=== PATIENT | male | born 1945 | race Caucasian/White ===

== ENCOUNTER → 2018-05-28 11:18 | Outpatient (CLI) | payer MEDICARE, SELFPAY ==
[2018-06-03 16:08] LABS: HSV 1 By PCR Negative (Negative)
[2018-06-04 11:53] LABS: HSV 2 By PCR Positive (Negative)
== END ==
PROVIDERS: Referring Provider Dermatology; Visit Provider Dermatology
DX: B00.1 Herpesviral vesicular dermatitis (principal)
CPT/HCPCS: 87529; 87798

== ENCOUNTER 2020-11-13 21:52 | Emergency (ER) | payer MEDICARE, SELFPAY ==
[2020-11-13] VITALS (7 sets, daily range): BP systolic 140–161; BP diastolic 97–104; PULSE 85–90; RESP 19–25; TEMP 35.8; O2SAT 94–96; BMI 27.9
--- NOTE | 2020-11-13 21:59 | EKG12_ITS ---
Test Reason : DYSRYTHMIA Blood Pressure : / mmHG Vent. Rate : 083 BPM Atrial Rate : 083 BPM P-R Int : 202 ms QRS Dur : 082 ms QT Int : 378 ms P-R-T Axes : 035 031 004 degrees QTc Int : 444 ms Normal sinus rhythm Normal ECG Confirmed by RICARDO CASAS, RAJESH ([id number]), editorial cartoonist SHIMA ALVARES ([id number]) on 11/16/2020 10:03:03 AM Referred By: ALEN Confirmed By:RAJESH SILVA MD
--- NOTE | 2020-11-13 21:59 | CT_ITS ---
We are attempting to reach an attending provider to discuss findings. An addendum with communication details will be sent when the communication is complete. EXAMINATION : Head CT w/out contrast HISTORY : Transient amnesia COMPARISON : None. TECHNIQUE : Multiple contiguous axial images were obtained from the skull base to the vertex without intravenous contrast. A radiation dose optimization technique was used for this scan. FINDINGS : There is no evidence for acute intracranial hemorrhage, mass effect, or midline shift. There is no extra-axial fluid collection. There are periventricular white matter changes consistent with chronic microvascular ischemic disease. There is normal fox-white differentiation, without CT evidence of acute ischemia or infarct. The skull base and calvarium are unremarkable. The orbits are unremarkable. The paranasal sinuses are clear. The mastoid air cells are well-aerated. The soft tissues are unremarkable. CT/STROKE Brain/Head without Cont IMPRESSION: No acute intracranial abnormality. Chronic ischemic changes of the brain. Electronically Signed: Konrad Ashraf MD at 22:22 EDT Tel , Service support ,
[2020-11-13 22:00] LABS: Bedside Glucose 125 mg/dL (70-110)
[2020-11-13 22:08] LABS: Absolute Lymphocyte Count 1.39 X10^3/uL (0.83-4.51); Absolute Neutrophil Count 3.1 X10^3/uL (2.0-7.7); Basophil# 0.03 X10^3/uL; Basophil% 0.6 % (0-1); Hemoglobin 15.7 g/dL (13.0-16.5); Lymphocyte # 1.39 X10^3/ul (4.0); Lymphocyte % 28.3 % (19-41); Mean Corp Hgb Conc 34.1 g/dL (32-36); Mean Corpuscular Hgb 32.4 pg (27.0-32.0); Mean Platelet Vol. 11.7 fl (6.2-12.0); Monocyte# 0.38 X10^3/uL; Monocyte% 7.7 % (0-10); NRBC Flagged by Analyzer 0 % (0-5); Neutrophil # 3.11 X10^3/uL (2.7-7.7); Neutrophil % 63.2 % (47-70); Platelet Count 171 K/mm3 (150-450); RBC Distribution Width CV 12.8 % (11.6-14.6); RBC Distribution Width SD 44.8 fl (35.1-43.9); Red Blood Count 4.84 M/mm3 (4.6-6.2); White Blood Count 4.9 K/mm3 (4.4-11.0)
--- NOTE | 2020-11-13 22:08 | RAD_ITS ---
STUDY: X-RAY CHEST REASON FOR EXAM: Male, 74 years old. Stroke symptoms. TECHNIQUE: AP portable upright COMPARISON: None. FINDINGS: No evidence of pneumonia, pulmonary edema, pneumothorax or pleural effusion. Cardiac silhouette, hilar and mediastinal contours with no acute findings. Heart size normal. Atherosclerosis of the thoracic aorta. Degenerative osseous changes with no acute osseous abnormality. Right shoulder arthroplasty partially visible. RAD/Chest 1 View IMPRESSION: No acute findings. Electronically Signed: Renato Jaramillo MD at 22:50 EDT Tel , Service support ,
--- NOTE | 2020-11-13 22:17 | ED.VIS.GEN ---
History of Present Illness Chief Complaint: Neuro S/Sx Narrative: Patient presenting for evaluation due to an episode of amnesia. Patient has an underlying history of hypertension and hyperlipidemia. Per the patient's he has been going to a memory specialist recently secondary to some cognitive issues. Patient reports that today he had an episode where he basically forgot an entire 2-hour period of time where a friend had come over to his house and helped him on a project. He reports that afterwards he completely forgot about this, and actually argued with his whether or not the friend was there, he called the friend and the friend corroborated that he was there for about 2-1/2 hours. The patient tells me that after he was reminded about this he remembered the entirety of the event. He denies that he had any sort of other neurologic signs or symptoms such as visual changes numbness weakness. No speech difficulty. He denies any other somatic complaints such as chest pain or shortness of breath or infectious signs or symptoms such as fever cough nausea vomiting or diarrhea. Review of systems otherwise negative. Past Medical History - Allergies and Home Meds Allergies/Adverse Reactions: Allergies carbamazepine Allergy (Verified 11/13/20 22:02) Anaphylaxis atorvastatin Adverse Reaction (Verified 11/13/20 22:02) Pain in joints lovastatin Adverse Reaction (Verified 11/13/20 22:02) Pain in joints Vrqavqs-Ato-Zbq Reductase Inhibitor Adverse Reaction (Verified 11/13/20 22:02) Pain in joints Primary Care Physician: Morena Davis MD [Primary Care Provider] - Prior records reviewed: Yes Past Medical History: - - Hypertension, hyperlipidemia Lives: Spouse/ Significant Other Smoking Status: Never smoker Alcohol: None Drugs: None Review of Systems All systems negative except as indicated General: Denies: Chills, Fever, Sweats Eyes: Denies: Visual changes - bilaterally, Diplopia ENT: Denies: Rhinorrhea, Sore throat Cardiovascular: Denies: Chest pain, Palpitations Respiratory: Denies: Dyspnea, Cough, Dyspnea on exertion Gastrointestinal: Denies: Abdominal pain, Nausea, Vomiting, Diarrhea, Melena, Hematochezia Genitourinary: Denies: Dysuria, Hematuria, Frequency Musculoskeletal: Denies: Back pain, Extremity Pain Skin: Denies: Rash, Wounds Neurological: Reports: - - Episode of amnesia Physical Exam Vital Signs/Narrative: Vital Signs Temp Pulse Resp BP Pulse Ox 11/13/20 22:08 96 11/13/20 21:59 90 21 H 160/102 H 95 11/13/20 21:52 96.4 F L 89 25 H 161/104 H 96 Inital Vital Signs reviewed: Yes General: Well nourished, Well developed, No Acute Distress Head: Normocephalic, Atraumatic Eyes: Perrl, EOMI ENT: Moist mucous membranes, No rhinorrhea Neck: Supple, Nontender Cardiovascular: Regular rate, Regular rhythm, No murmurs Respiratory: No distress, CTA bilaterally, Chest nontender Abdomen: Soft, Nontender, Nondistended, Normal bowel sounds Back: Nontender, Normal Inspection Extremities: Nontender, No edema Skin: Normal color, No rash Neurological: Alert, Oriented x3, Cranial nerves II-XII grossly intact, Normal Strength, Normal Sensation, - - Night stroke scale is 0 Psychological: Normal affect, Normal Mood Diagnostic/Tx/Re-eval Chest X-Ray - ED: 1 View, Read by ED Physician, Normal Clinical Impression(s) from Imaging Studies Chest X-Ray 11/13/20 22:08 IMPRESSION: No acute findings. Electronically Signed: Renato Jaramillo MD at 22:50 EDT Tel , Service support , Laboratory Data 11/13/20 11/13/20 11/13/20 21:55 22:00 22:00 WBC 4.9 RBC 4.84 Hgb 15.7 Hct 46.0 MCV 95.0 H MCH 32.4 H MCHC 34.1 RDW Std Deviation 44.8 H RDW Coeff of Jaelyn 12.8 Plt Count 171 MPV 11.7 Immature Gran % (Auto) 0.200 Neut % (Auto) 63.2 Lymph % (Auto) 28.3 Finney % (Auto) 7.7 Eos % (Auto) 0.0 Baso % (Auto) 0.6 Absolute Neuts (auto) 3.1 Absolute Lymphs (auto) 1.39 Nucleated RBC % 0 PT 12.0 INR 0.9 APTT 26.6 Sodium Potassium Chloride Carbon Dioxide Anion Gap BUN Creatinine Estim Creat Clear Calc Est GFR (MDRD) Af Amer Est GFR (MDRD) Non-Af BUN/Creatinine Ratio Glucose Calcium Troponin I POC Glucose 125 H 11/13/20 22:00 WBC RBC Hgb Hct MCV MCH MCHC RDW Std Deviation RDW Coeff of Jaelyn Plt Count MPV Immature Gran % (Auto) Neut % (Auto) Lymph % (Auto) Finney % (Auto) Eos % (Auto) Baso % (Auto) Absolute Neuts (auto) Absolute Lymphs (auto) Nucleated RBC % PT INR APTT Sodium 137 Potassium 5.2 H Chloride 103 Carbon Dioxide 27.0 Anion Gap 7 BUN 28 H Creatinine 0.96 Estim Creat Clear Calc 70.76 Est GFR (MDRD) Af Amer 99 Est GFR (MDRD) Non-Af 82 BUN/Creatinine Ratio 29.2 H Glucose 115 H Calcium 9.7 Troponin I < 0.015 POC Glucose - EKG Initial EKG Interpretation: - - Sinus rhythm of [address] segments normal T waves, mild OH prolongation at 202 normal QTC. No evidence of acute ischemia or arrhythmia. - Medical Decision Making Patient presented secondary to an episode of forgetfulness. CT imaging of the brain was negative. Chest x-ray by my personal review shows no acute pathology, radiology concurs. Laboratory work-up including CBC chemistry and troponin were found to be unremarkable. Not clinically significant elevation of potassium was noted. Patient remained stable in the emergency department. Patient does have an underlying history of some cognitive issues, and this seems more of a likely presentation of a cognitive impairment rather than a TIA or a stroke. Even if it was a TIA, the patient's ABCD 2 score is only a 2 making him low risk for conversion to a stroke. Patient will continue to follow-up with his cognition specialist at the [facility]. Patient was discharged in stable condition. ED Disposition - Plan for ED Patient: Disposition: Home or Assisted Living Diagnosis: Transient amnesia Instructions: ED Confusion Referrals: Morena Davis MD [Primary Care Provider] - As Needed
[2020-11-13 22:18] LABS: International Normalized Ratio 0.9; Partial Thromboplast Time 26.6 Seconds (24.1-36.2)
[2020-11-13 22:31] LABS: Anion Gap 7 (5-15); BUN 28 mg/dL (7-18); BUN/Creat Ratio 29.2 RATIO (10-20); Calcium,Total 9.7 mg/dL (8.5-10.1); Chloride 103 mmol/L (98-107); Creatinine, Serum 0.96 mg/dL (0.70-1.30); EST Glomerular Filtration Rate 82 mL/min (>60); Est Glom Filt Rate - Afr Amer 99 mL/min (>60); Estimated Creatinine Clearance 70.76 ml/min; Glucose 115 mg/dL (74-106); Potassium 5.2 mmol/L (3.5-5.1); Sodium Level 137 mmol/L (136-145)
== END 2020-11-13 23:47 | disposition home or self-care (01) ==
PROVIDERS: Emergency Provider Emergency Medicine; PCP Internal Medicine
DX: R41.3 Other amnesia (principal); I10 Essential (primary) hypertension; E78.5 Hyperlipidemia, unspecified; Z79.899 Other long term (current) drug therapy
CPT/HCPCS: 70450; 71045; 80048; 82962; 84484; 85025; 85610; 85730; 93005; 99284; A4216

== ENCOUNTER 2021-07-03 11:00 | Outpatient (RCR) | payer MEDICARE, SELFPAY ==
--- NOTE | 2021-05-15 14:08 | HP.PTEVAL_ITS ---
Patient's Visit Information JAI BABB is a 75 year old M referred to Physical Therapy by JUSTIN FLOYD with a diagnosis of LUMBAR FACET ARTHROPATHYT, SPONDYLOSIS AND S/P LUMBAR LAMINECTOMY. Date of Evaluation: 05/15/21 Physical Therapist: Adina Ricks, PT, Cert MDT - Visit Plan Frequency: 2-3x /Week Duration: 4-6 Weeks Plan: *NO L SHLD EX'S*. POSTURE CORRECTION/STRENGTHENING, INSTRUCTION IN APPROPRIATE BODY MECHANICS AND ACTIVITY MODIFICATIONS. DLS STARTING WITH A NEUTRAL SPINE PROGRESSING ROM TOLERATED. TIGRE LE ROM, STRETCHING AND STRENGTHENING. HEP INSTRUCTION. - Subjective Work/Leisure: RETIRED. TRAP SHOOTING (WEATHER DEPENDENT). Disability: NO. Present symptoms: TIGRE LOW BACK PAIN. TIGRE LE PAIN R > L RECENT 5 WEEKS AGO BEFORE ABLASION PROCEEDURE. NO NUMBNESS OR TINGLING. Present since: ABOUT 20 YEARS AGO. Pain Scale: WORST 6/10, LEAST 2/10. Currently: 2/10. Commenced as a result of: NO APPARENT REASON BUT WAS WORKING CONSTRUCTION AND HARD ON BACK. Symptoms at onset: LOW BACK. Worse: MOVING, STANDING. Better: SITTING AND LYING. Disturbed sleep: NO. Previous history/Previous treatment: CHIROPRACTOR STARTING YEARS AGO WHEN IT FIRST STARTED WHEN LBP WAS INTERMITTENT. WENT FOR A FEW YEARS NEEDED. RONIT'S FOR THE LAST 6-7 YEARS. LAST RONIT WAS APPROX DECEMBER 2020 - NO EFFECT. LUMBAR LAMENECTOMY APPROX OCTOBER 2020. SOME BACK PT IN THE PAST TOO WITH MOST RECENT THERAPY BEING AT [facility] BEFORE SURGERY AND IT DIDN'T HURT BUT DIDN'T SEEM TO HELP EITHER. STILL HAD PAIN AFTER THE BACK SURGERY ([facility]) AND THEN HAD ANOTHER RONIT AND ABLASION. PATIENT REPORTS HE HASN'T HAD LEG PAIN SINCE THE ABLASION AND HE DOESN'T STUMBLE LIKE AN OLD MAN NOW. IT REDUCED THE BAD PAIN THAT KEPT ME GROUNDED. THE ABLASION ALSO EASED HIS BACK PAIN FOR A FEW WEEKS BUT STILL SIGNIFICANT. HIS PT REFERRAL NOW IS FROM THE NURSE PRACTITIONER AT [facility]. Coughing/sneezing/straining: NO. Gait: PATIENT REPORTS HIS WALKING IS BETTER SINCE THE ABLASION BUT HE STILL WALKS CAREFUL TO PROTECT HIS BACK. NO ASSISTIVE DEVICE USE. Difficulty initiating urination: NO. Accidents: NO. Unexplained weight loss: NO. Imaging: MOST RECENT LOW BACK IMAGING WAS BEFORE THE ABLA JEREMY. PMH/Recent major surgery: HTN, PROSTATE CANCER ABOUT 10 YEARS AGO PLUS RADIATION 5 YEARS LATER. L SHLD SURGERY PENDING APPROX Jul FOR WEAR AND TEAR. HAS A TOTAL RIGHT SHLD REPLACEMENT ABOUT 7 YEARS AGO. - Objective Sitting/Standing Posture: POOR. VERY SLOUCHED THROUGHOUT SUBJECTIVE EXAM. Lordosis: REDUCED. Lateral shift: NO. Relevant shift: N/A. Active Correction of posture: NE. Other Observations: INDEP GAIT INTO PT WITHOUT ANY LOB OR ASSISTIVE DEVICES. INDEP TRANSFER SIT TO STAND WITHOUT UE ASSIST. Motor deficit: TIGRE LE'S GROSSLY 5/5 WITH MMT'ING EXCEPT HIPS 4/5. Sensory deficit: TIGRE LE LIGHT TOUCH SENSTATION INTACT AND SYMMETRICAL. ROM deficit: TIGHT TIGRE HIP FLEXORS, HS'S AND GASTROC SOLEUS COMPLEX'S. Dural Signs: NEGATIVE TIGRE LE'S . Lumbar mvmt loss: flex - MIN. ext - ARNIE. R SG - ARNIE. L SG - ARNIE. Core strength: POOR. Palpation: NO ACUTE LUMBAR TENDERNESS. TREATMENT: NEUROMUSCULAR REEDUCATION - RETRAINING OF MVMT AND POSTURE FOR SITTING, LYING AND STANDING ACTIVITIES. - Balance/Special Test Scores Oswestry Low Back Score: 20 - Goals Goal 1:: DECREASE C/O LOW BACK PAIN Goal Time Frame: 4-6 Weeks Goal 2:: IMPROVE PERSONAL CARE, LIFTING, WALKING, SITTING, STANDING, SOCIAL LIFE, TRAVEL AND WORK/HOMEMAKING FUNCTION. Goal Time Frame: 4-6 Weeks Goal 3:: INSTRUCT IN PROPHYLAXIS Goal Time Frame: 4-6 Weeks - Anticipated Interventions Patient/Client Instruction: Educate patient on: Condition, Plan of Care, Risk Factors For the Purpose of:: To improve self management Therapeutic Exercise to Include: Strength training, Body mechanics, Postural training, Flexibilty training, Neuromotor development, In an aquatic setting, Dynamic Lumbar Stabilization For the Purpose of:: To decrease pain, To improve muscle performance and motor function, To increase tolerance to activity/condition/position, To improve ability of physical actions for home/community/work/leisure Thank you for the opportunity to evaluate your patient. For Medicare and Medicare HMO plans, please review the plan of care and approve it. It will need to be FAXED BACK to us at [phone] for Medicare purposes. For Medicare only, by signing this I certify the plan of care. Please let me know if there are questions or concerns regarding this plan of care. Physician Signature: Date:
--- NOTE | 2021-06-09 11:02 | HP.PTREVAL ---
JUSTIN FLOYD, It has been my pleasure to treat JAI BABB over the last 10 visits for LUMBAR FACET ARTHROPATHY, SPONDYLOSIS AND S/P LUMBAR LAMINECTOMY. Please see the progress note below for an update on the physical therapy plan of care! Subjective: L TSR PENDING JUL 07 2021. PATIENT REPORTS THAT HE FEELS BETTER AFTER EACH VISIT. STATES THAT WHEN HE DOES THE EX'S AT HOME AND THEN TAKES A SHOWER HIS PAIN IS MANAGEABLE FOR THE REST OF THE NIGHT. PATIENT REPORTS HE STILL HAS A HABIT OF SITTING TOO MUCH AND HE DOESN'T HAVE A LOT OF ENERGY BUT THE PT HELPS THAT. PATIENT REPORTS THE PAIN STILL DRAINS HIS ENERGY. LOW BACK PAIN RANGES 0/10 TO 7/10. PATIENT REPORTS HE WOULD LIKE TO CONTINUE PT DUE TO THE BENEFIT HE IS FEELING. PATIENT REPORTS HE HAS A [employer] MEMBERSHIP AND WANTS TO USE HIS MEMBERSHIP ONCE FORMAL PT CONCLUDES. Objective/Function: PATIENT WAS SEEN TODAY FOR RE-ASSESSMENT OF PROGRESS TOWARD THE SET PT GOALS AND THE NEED FOR FURTHER PHYSICAL THERAPY VS READINESS FOR DISCHARGE. PATIENT IS A GOOD CANDIDATE TO CONTINUE FORMAL PT BASED ON PROGRESS MADE, NEED FOR THERAPIST INSTRUCTION AND ROOM FOR FUTHER IMPROVEMENT. PATIENT AGREEABLE. UPON EXAM TODAY: Motor deficit: TIGRE LE'S GROSSLY 5/5 WITH MMT'S. Sensory deficit: TIGRE LE LIGHT TOUCH SENSTATION INTACT AND SYMMETRICAL. ROM deficit: TIGHT TIGRE HIP FLEXORS, HS'S AND GASTROC SOLEUS COMPLEX'S. Dural Signs: NEGATIVE TIGRE LE'S. Lumbar mvmt loss: flex - NIL. ext - ARNIE. R SG - ARNIE. L SG - ARNIE. PATIENT REPORTS MILD INCREASED LBP WITH TIGRE SG TESTING. Core strength: POOR. Palpation: NO ACUTE LUMBAR TENDERNESS. Plan Plan: *NO L SHLD EX'S*. POSTURE CORRECTION/STRENGTHENING, INSTRUCTION IN APPROPRIATE BODY MECHANICS AND ACTIVITY MODIFICATIONS. DLS STARTING WITH A NEUTRAL SPINE PROGRESSING ROM TOLERATED. TIGRE LE ROM, STRETCHING AND STRENGTHENING. HEP INSTRUCTION. Balance/Gait/Functional tests - Balance/Special Test Scores Oswestry Low Back Score: 18 Goals Goal 1:: DECREASE C/O LOW BACK PAIN Goal Time Frame: 4-6 Weeks Goal 2:: IMPROVE PERSONAL CARE, LIFTING, WALKING, SITTING, STANDING, SOCIAL LIFE, TRAVEL AND WORK/HOMEMAKING FUNCTION. Goal Time Frame: 4-6 Weeks Goal 3:: INSTRUCT IN PROPHYLAXIS Goal Time Frame: 4-6 Weeks Anticipated Interventions Patient/Client Instruction: Educate patient on: Condition, Plan of Care, Risk Factors For the Purpose of:: To improve self management Therapeutic Exercise to Include: Strength training, Body mechanics, Postural training, Flexibilty training, Neuromotor development, In an aquatic setting, Dynamic Lumbar Stabilization For the Purpose of:: To decrease pain, To improve muscle performance and motor function, To increase tolerance to activity/condition/position, To improve ability of physical actions for home/community/work/leisure Please do not hesitate to contact me at [phone] by phone or if you have questions or concerns regarding this new plan of care! Sincerely, Adina Ricks, PT, Cert MDT
--- NOTE | 2021-07-03 11:29 | HP.PTDCSUM ---
It has been my pleasure to treat AJI BABB referred by JUSTIN FLOYD, with the diagnosis of LUMBAR FACET ARTHROPATHY, SPONDYLOSIS AND S/P LUMBAR LAMINECTOMY for a total of 18 visit(s). Discharge Date: 07/03/21 Please see the following information for a summary of their discharge status. Subjective: PATIENT REPORTS THAT IN THE LAST WEEK HE HASN'T HAD THE SEVERE NASTY PAIN IN HIS BACK THAT HE DID BEFORE STARTING THERAPY. HE REPORTS HE IS A LITTLE MORE FLEXABLE TOO. SOME OF THE EX'S ARE BETTER THAN OTHERS AND SOME RELIEVE HIS PAIN. NONE OF THE EX'S MAKE HIS PAIN WORSE. THE BIGGEST TROUBLE HE STILL HAS IS BEING ON HIS FEET BUT IT IS BETTER. LOW BACK Pain Intensity (Out of 10): 3 % Improvement: 50 Objective/Function: PATIENT WAS SEEN TODAY FOR RE-ASSESSMENT OF PROGRESS TOWARD THE SET PT GOALS AND THE NEED FOR FURTHER PHYSICAL THERAPY VS READINESS FOR DISCHARGE. PATIENT HAS RESPONDED WELL TO PT AND IS APPROPRIATE FOR DISCHARGE TO INDEP EXERCISE. HE DEMO'S IMPROVED STANDING AND WALKING FUNCTION IN THE CLINIC TODAY WITHOUT C/O INCREASED PAIN. UPON EXAM TODAY: THIS PATIENT AMBULATES INDEP'LY INTO PT WITHOUT ANY ASSISTIVE DEVICES AND FAIR CADANCE. INDEP TRANSFTER SIT TO STAND WITHOUT UE ASSIST. Motor deficit: TIGRE LE'S GROSSLY 5/5 WITH MMT'S. Sensory deficit: TIGRE LE LIGHT TOUCH SENSTATION INTACT AND SYMMETRICAL. ROM deficit: TIGHT TIGRE HIP FLEXORS, HS'S AND GASTROC SOLEUS COMPLEX'S. Dural Signs: NEGATIVE TIGRE LE'S. Lumbar mvmt loss: flex - NIL. ext - ARNIE. R SG - ARNIE. L SG - ARNIE. PATIENT REPORTS MILD INCREASED LBP WITH TIGRE SG TESTING. Core strength: POOR. Palpation: NO ACUTE LUMBAR TENDERNESS. Goal 1:: DECREASE C/O LOW BACK PAIN Goal Progress: Goal Met Goal 2:: IMPROVE PERSONAL CARE, LIFTING, WALKING, SITTING, STANDING, SOCIAL LIFE, TRAVEL AND WORK/HOMEMAKING FUNCTION. Goal Progress: Goal Met Goal 3:: INSTRUCT IN PROPHYLAXIS Goal Progress: Goal Met Plan: D/C TO HEP. PATIENT IS AGREEABLE. HAVING L TSR SATURDAY. If there are questions or concerns regarding this patient's physical therapy, please feel free to call me at [phone]. Thank you for the referral of this patient. Sincerely, Adina Ricks, PT, Cert MDT Balance/Gait/Functional tests - Balance/Special Test Scores Oswestry Low Back Score: 21
== END 2021-07-03 19:00 | disposition home or self-care (01) ==
LOC: PT 11:00
PROVIDERS: PCP Internal Medicine
DX: M47.816 Spondylosis without myelopathy or radiculopathy, lumbar region (principal); Z98.890 Other specified postprocedural states
CPT/HCPCS: 97110; 97112; 97162; 97164

== ENCOUNTER 2021-10-19 13:30 | Outpatient (RCR) | payer MEDICARE, SELFPAY ==
--- NOTE | 2021-09-29 10:52 | HP.PTEVAL_ITS ---
Patient's Visit Information JAI BABB is a 75 year old M referred to Physical Therapy by BEATRICE GRAJEDA with a diagnosis of Left Total Shoulder 07/09/2021. Date of Evaluation: 09/29/21 Physical Therapist: Stephanie Hale DPT - Visit Plan Frequency: 2-3x /Week Duration: 3 Weeks Plan: Left Total Shoulder Replacement Jul 09, 2021. Focus on ROM, UE and scapular s/s, and functional mobility. HEP Given IE: Posture, Standing AROM Flexion and abduction, Mid Row, LAE and Adduction- BTB - Subjective Left total shoulder replacement early July [address] Hussein. He had his right shoulder done a few years ago. When he did his other one he was in [place] and was working out 2-5 hours a day. He belongs to [employer]- he has had a back surgery and another procedure so he has not been coming. He comes 3- 5x a week and know some exercises for his shoulder. The MD is really happy with progress and gave him the opportunity to come to therapy to learn a good home exercise program. Left hand dominate. 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 But he would like to return to this. Left shoulder takes the recoil of the gun. He currently has no pain in the shoulder. When he moves the shoulder in the mornings he does have some pain Worst: 3/10. Describes the pain as sharp and hears clicks. Best: 0/10 Eases: resting against his body. Feels he is 50-60% back to normal. No N/T- minor radiating down to the elbow. Sleep: not disturbed. PMHx: HTN, prostate cancer 10 years, back surgery 2020. - Objective Posture: Fh, RS, can correct but does not maintain. Gait: no deviation noted- good arm swing and trunk rotation. Palpation: not tender to touch. ROM: Cervical: WFL, Shoulder: AROM flexion: 160 degrees, abd: 100 degrees, IR: to belt line, ER: 50 degrees, Elbow/Wrist/Hand: WNL. Strength: Scap: fair, Shoulder: 4/5 throughout, Elbow: 4+/5, Wrist: 4+/5, Silviculturist: Right:110 Left: 80 - Balance/Special Test Scores Quick DASH Score: 29.5450 - Goals Goal 1:: Patient will be I with HEP and progression Goal Time Frame: 4-6 Weeks Goal 2:: Patient will maintain proper posture t/o tx session to demo increased scap s/s Goal Time Frame: 4-6 Weeks Goal 3:: Patient will return to all normal ADL's without pain Goal Time Frame: 4-6 Weeks - Rehabilitation Potential Physical Therapy Diagnosis: Patient presents with hypomobility s/p Left Total Shoulder. He has decreased pain free ROM, UE and scapular strength/stabilization and muscular endurance leading to poor posture and decreased ability to perform ADL's. Rehabilitation Potential: Good - Anticipated Interventions Patient/Client Instruction: Educate patient on: Benefits of Fitness Program Therapeutic Exercise to Include: Strength training, Endurance training, Body mechanics, Postural training, Flexibilty training, Neuromotor development, Dynamic Lumbar Stabilization, Scapular Strength/Stabilization For the Purpose of:: To improve muscle performance and motor function TENS: Yes Cryotherapy (ice pack, ice massage): Yes Thermo therapy (hot pack): Yes Ultrasound (thermal/non thermal): No Thank you for the opportunity to evaluate your patient. For Medicare and Medicare HMO plans, please review the plan of care and approve it. It will need to be FAXED BACK to us at [phone] for Medicare purposes. For Medicare only, by signing this I certify the plan of care. Please let me know if there are questions or concerns regarding this plan of care. Physician Signature: Dat e:
--- NOTE | 2021-10-19 13:49 | HP.PTDCSUM ---
It has been my pleasure to treat JAI BABB referred by BEATRICE GRAJEDA, with the diagnosis of Left Total Shoulder 07/09/2021 for a total of 10 visit(s). Discharge Date: Please see the following information for a summary of their discharge status. Subjective: Patient reports that he sees the MD at the end of the month. His back bothers him a lot more than his shoulder. He feel something in the shoulder but its not enough to even be concerned about. Doesn't lift anything heavy. Has not done any shooting due to not seeing the MD yet. Left Shoulder Pain Intensity (Out of 10): 2 Low Back Pain Intensity (Out of 10): Unrated % Improvement: 85 Objective/Function: Posture: Fh, RS, can correct but does not maintain. Gait: no deviation noted- good arm swing and trunk rotation. Palpation: not tender to touch. ROM: Cervical: WFL, Shoulder: AROM flexion: 170 degrees, abd: 140 degrees, IR: to belt line, ER: 50 degrees, Elbow/Wrist/Hand: WNL. Strength: Scap: fair, Shoulder: 4+/5 throughout, Elbow: 5/5, Wrist: 5/5 Goal 1:: Patient will be I with HEP and progression Goal Progress: Goal Met Goal 2:: Patient will maintain proper posture t/o tx session to demo increased scap s/s Goal Progress: Goal Met Goal 3:: Patient will return to all normal ADL's without pain Goal Progress: Goal Met Plan: 10/19/21: Discharge from PT for shoulder- possibly start back PT again. Left Total Shoulder Replacement Jul 09, 2021. Focus on ROM, UE and scapular s/s, and functional mobility. HEP Given IE: Posture, Standing AROM Flexion and abduction, Mid Row, LAE and Adduction- BTB If there are questions or concerns regarding this patient's physical therapy, please feel free to call me at [phone]. Thank you for the referral of this patient. Sincerely, Stephanie Hale, DPT Balance/Gait/Functional tests - Balance/Special Test Scores Quick DASH Score: 18.1800
== END 2021-10-19 19:00 | disposition home or self-care (01) ==
LOC: PT 13:30
PROVIDERS: PCP Internal Medicine
DX: Z47.1 Aftercare following joint replacement surgery (principal); Z96.612 Presence of left artificial shoulder joint
CPT/HCPCS: 97110; 97162; 97164

== ENCOUNTER 2023-12-22 15:46 | Emergency (ER) | payer MEDICARE, SELFPAY ==
[2023-12-22 15:47] VITALS: BP 151/107; PULSE 92; RESP 18; TEMP 36.4; O2SAT 94; BMI 24.8
--- NOTE | 2023-12-22 15:58 | EDS_ITS ---
HPI History of Present Illness Chief Complaint: Cold Sx [facility] Medical History (Updated 12/22/23 @ 16:51 by EDEN Lucas) Back pain Home Medications Prevalite Packet 1 pkt DAILY 11/13/20 [History Last Taken Unknown] acetaminophen 500 mg tablet 1,000 mg PO BID 11/13/20 [History Last Taken Unknown] amlodipine 5 mg tablet 5 mg PO DAILY 11/13/20 [History Last Taken Unknown] cholecalciferol (vitamin D3) 50 mcg (2,000 unit) capsule 2,000 unit PO DAILY 11/13/20 [History Last Taken Unknown] lisinopril 20 mg-hydrochlorothiazide 25 mg tablet 1 ea PO DAILY 11/13/20 [History Last Taken Unknown] meloxicam 15 mg tablet 15 mg PO DAILY 11/13/20 [History Last Taken Unknown] rosuvastatin 10 mg tablet 10 mg PO QHS 11/13/20 [History Last Taken Unknown] sertraline 100 mg tablet 150 mg PO DAILY 11/13/20 [History Last Taken Unknown] Allergy/AdvReac Type Severity Reaction Status Date / Time carbamazepine Allergy Anaphylaxis Verified 12/22/23 15:47 atorvastatin AdvReac Pain in Verified 12/22/23 15:47 joints lovastatin AdvReac Pain in Verified 12/22/23 15:47 joints [id number] Reductase AdvReac Pain in Verified 12/22/23 15:47 Inhibitor joints Social History Smoking Status: Never smoker EXAM Physical Exam Const Vital Signs: 12/22/23 15:47 Temperature 97.5 F L Temperature Source Temporal Pulse Rate 92 Respiratory Rate 18 Blood Pressure 151/107 H Blood Pressure Mean 121 Pulse Ox 94 Oxygen Delivery Method Room Air Discharge Plan Triage Chief Complaint: Cold Sx ED Midlevel Provider: Nicolette Palomo ED Provider: Dale Mehta Dx/Rx/DC Orders Clinical Impression: COVID-19 Instructions: Coronavirus Disease 2019 (COVID-19): Caring for Yourself or Others Prescriptions: No Action meloxicam 15 MG tablet 15 mg PO DAILY sertraline 100 MG tablet 150 mg PO DAILY amlodipine 5 MG tablet 5 mg PO DAILY acetaminophen 500 MG tablet 1,000 mg PO BID lisinopril-hydrochlorothiazide 1 EACH tablet 1 ea PO DAILY rosuvastatin 10 MG tablet 10 mg PO QHS cholecalciferol (vitamin D3) 2,000 UNIT capsule 2,000 unit PO DAILY Prevalite Packet 1 pkt DAILY Primary Care Provider: Morena Davis Referrals: Morena Davis MD [Primary Care Provider] - Disposition Disposition: Home, Self Care
--- NOTE | 2023-12-22 16:21 | EX.ED.DYSGE1 ---
HPI <EDEN Lucas - Last Filed: 12/22/23 16:22> History of Present Illness Chief Complaint: Cold Sx Narrative Narrative: 78-year-old male states for 1 week he has had fatigue and hoarse voice. His had cold symptoms and tested positive for COVID a couple days ago. He brought her in for evaluation and states while he is here he might as well get tested. He really has no other acute complaints. He denies having a fever or significant cough. He has no chest pain or shortness of breath. He has no GI symptoms. PFSH <EDEN Lucas - Last Filed: 12/22/23 16:22> [facility] Medical History (Updated 12/22/23 @ 16:51 by EDEN Lucas) Back pain Home Medications Prevalite Packet 1 pkt DAILY 11/13/20 [History Last Taken Unknown] acetaminophen 500 mg tablet 1,000 mg PO BID 11/13/20 [History Last Taken Unknown] amlodipine 5 mg tablet 5 mg PO DAILY 11/13/20 [History Last Taken Unknown] cholecalciferol (vitamin D3) 50 mcg (2,000 unit) capsule 2,000 unit PO DAILY 11/13/20 [History Last Taken Unknown] lisinopril 20 mg-hydrochlorothiazide 25 mg tablet 1 ea PO DAILY 11/13/20 [History Last Taken Unknown] meloxicam 15 mg tablet 15 mg PO DAILY 11/13/20 [History Last Taken Unknown] rosuvastatin 10 mg tablet 10 mg PO QHS 11/13/20 [History Last Taken Unknown] sertraline 100 mg tablet 150 mg PO DAILY 11/13/20 [History Last Taken Unknown] Allergy/AdvReac Type Severity Reaction Status Date / Time carbamazepine Allergy Anaphylaxis Verified 12/22/23 15:47 atorvastatin AdvReac Pain in Verified 12/22/23 15:47 joints lovastatin AdvReac Pain in Verified 12/22/23 15:47 joints Ylykjcq-Xdl-Sjj Reductase AdvReac Pain in Verified 12/22/23 15:47 Inhibitor joints Social History Smoking Status: Never smoker ROS <EDEN Lucas - Last Filed: 12/22/23 16:22> ROS ED ROS Narrative Constitutional: Negative for fever, chills. Positive for malaise malaise. ENT: Negative for sore throat, rhinorrhea. CVS: Negative for chest pain. Respiratory: Negative for shortness of breath, cough. GI: Negative for abdominal pain, nausea, vomiting, diarrhea. EXAM <EDEN Lucas - Last Filed: 12/22/23 16:22> Physical Exam Narrative Exam Narrative: CONST: Patient sitting in no acute distress. EYES: Normal inspection. NECK: Normal inspection. RESP: No respiratory distress, CTAB. CVS: Regular rate and rhythm, no murmur, no gallop. SKIN: Color normal, no rash, warm, dry, intact. EXTREMITIES: Normal appearance, no pedal edema. NEURO: Alert and answering questions appropriately. PSYCH: Normal affect. Const Vital Signs: 12/22/23 15:47 12/22/23 16:24 Temperature 97.5 F L Temperature Source Temporal Pulse Rate 92 Respiratory Rate 18 Respiratory Effort Normal Respiratory Pattern Normal Blood Pressure 151/107 H Blood Pressure Mean 121 Pulse Ox 94 Oxygen Delivery Method Room Air <Dr. Dale Mehta DO - Last Filed: 12/22/23 16:56> Physical Exam Const Vital Signs: 12/22/23 15:47 12/22/23 16:24 Temperature 97.5 F L Temperature Source Temporal Pulse Rate 92 Respiratory Rate 18 Respiratory Effort Normal Respiratory Pattern Normal Blood Pressure 151/107 H Blood Pressure Mean 121 Pulse Ox 94 Oxygen Delivery Method Room Air MDM <Dr. Dale Mehta DO - Last Filed: 12/22/23 16:56> MDM Treatment and Re-Evaluation :: I have personally performed a face to face assessment of the patient and have reviewed the REMBERTO Note. I performed a substantive portion of the visit including all aspects of the following. My tucker findings include: History: Patient presents with fatigue and hoarseness to his voice that has been getting worse over the past week. Patient states his was recently diagnosed with COVID. Patient states he feels like he needs to be tested as well. Patient denies any fevers or chills. Patient denies any nausea or vomiting. Patient admits to a mild cough. Exam: Vital signs are stable except for mildly elevated blood pressure 151/107. Patient is afebrile. Patient is in no acute distress. Oral mucosa is pink and moist. Neck is supple. Trachea is midline. There is no JVD. Heart was regular rate and rhythm. Lungs are clear and equal bilaterally. Abdomen is soft. Bowel sounds are normal. There is no tenderness. Cranial nerves II through XII are intact. There are no focal motor or sensory deficits noted. Medical Decision Making: Differential diagnosis includes viral illness, COVID, influenza, and RSV. COVID, influenza, and RSV PCR will be obtained to assess for COVID infection, influenza infection, and RSV infection. COVID-19 PCR was reviewed and was positive. Influenza PCR was reviewed and was negative for influenza A and influenza B. RSV PCR was reviewed and was negative. Patient was advised of his findings. Patient was instructed to continue Tylenol and ibuprofen as needed for any fevers or aches. Patient was instructed to drink plenty of fluids. Patient was instructed to follow-up with his primary care physician in 5 to 7 days. Patient understood and was agreeable with the plan. All questions were answered. Discharge Plan Triage Chief Complaint: Cold Sx ED Midlevel Provider: Nicolette Palomo ED Provider: Dale Mehta Dx/Rx/DC Orders Clinical Impression: COVID-19 Instructions: Coronavirus Disease 2019 (COVID-19): Caring for Yourself or Others Prescriptions: No Action meloxicam 15 MG tablet 15 mg PO DAILY sertraline 100 MG tablet 150 mg PO DAILY amlodipine 5 MG tablet 5 mg PO DAILY acetaminophen 500 MG tablet 1,000 mg PO BID lisinopril-hydrochlorothiazide 1 EACH tablet 1 ea PO DAILY rosuvastatin 10 MG tablet 10 mg PO QHS cholecalciferol (vitamin D3) 2,000 UNIT capsule 2,000 unit PO DAILY Prevalite Packet 1 pkt DAILY Primary Care Provider: Morena Davis Referrals: Morena Davis MD [Primary Care Provider] - Disposition Disposition: Home, Self Care
== END 2023-12-22 17:04 | disposition home or self-care (01) ==
PROVIDERS: Emergency Provider Emergency Medicine; PCP Internal Medicine; Visit Provider Emergency Medicine
DX: U07.1 COVID-19 (principal); R49.0 Dysphonia; R53.83 Other fatigue
CPT/HCPCS: 87631; 99282

== ENCOUNTER → 2024-02-26 | Outpatient (CLI) | payer MEDICARE, SELFPAY ==
[2024-02-26 13:33] LABS: Amphetamine Urine VISTA NEGATIVE (<1000 ng/mL); Barbiturate Urine VISTA NEGATIVE (< 200 ng/mL); Benzodiazepine Urine VISTA NEGATIVE (< 200 ng/mL); Cocaine Urine VISTA NEGATIVE (< 300 ng/mL); Ecstacy Urine VISTA NEGATIVE (< 500 ng/mL); Methadone Urine VISTA NEGATIVE (< 300 ng/mL); PCP Urine VISTA NEGATIVE (< 25 ng/mL); THC Urine VISTA NEGATIVE (< 50 ng/mL); Vista UDS pH Range 6
== END | disposition home or self-care (01) ==
LOC: LAB 12:07
PROVIDERS: PCP Nurse Practitioner; Referring Provider Anesthesiology Pain Medicine; Visit Provider Anesthesiology Pain Medicine
DX: F11.20 Opioid dependence, uncomplicated (principal)
CPT/HCPCS: 80307

== ENCOUNTER 2024-07-16 10:30 | Outpatient (RCR) | payer MEDICARE, SELFPAY ==
--- NOTE | 2024-06-01 14:02 | HP.PTEVAL ---
Patient's Visit Information Visit Information Visit Information: JAI BABB is a 78 year old M referred to Physical Therapy by JORDY GHOTRA with a diagnosis of LUMBAR RADICULPOATHY. Date of Evaluation: 06/01/24 Physical Therapist: David Correa PT, Cert MDT, OCS Visit Plan Frequency: 2x /Week Duration: 4 Weeks Plan: PT INTERVENTIONS DLS ,POSTURAL EX'S ,LE FLEXABILITY ,BLE STRENGTHENING AND FUNCTIONAL STRENGTHENING Subjective Subjective: This 78 y/o male presents to physical therapy with lumbar radiculopathy.Patient has back pain 25 years ,patient has lumbar surgery surgery . Patient has had pain pain management in past ,Dr Angel ~ 1 month ago which is last injection. Patient has had epidural injection several times.Recommended to see surgeon. Patient pain located symmetrical lumbar and occasional right leg pain. Aggravating factors standing /walking and difficulty with lifting. Alleviating factors rest and medication. Medication hydrocodone. Coughing/sneezing -,Denies paresthesia/tingling-. Patient pain can affects sleeping. Patient has PT in past. Patient has had imaging in past , Patient also had Left TSR. Patient goals to decrease pain. Patient condition affects QOL and function. SOCAIL : VOACTION: retired Pain Bilateral Back: Pain Intensity (Out of 10): 7 Pain Intensity Range: 9 and 10 Objective Objective: POSTURE: mild forward posture GAIT:mild forward posture reciprocal pattern slow [place] FLEXABILITY: hamstrings min tight ,piriformis mod tight PROM: hip IR 20 degrees LUMBAR ROM: flexion mod loss ,extension mod loss ,side glides mod loss MMT: quads/hams 4/5 ,hip flexion 4/5 ,gloria 4/5 Special Tests L/S Slump test left side: Negative L/S Slump test right side: Negative L/S Left Straight Leg Raise: Negative L/S Right Straight Leg Raise: Negative Lumbar Standing: Flexion - Mechanical Response: No effect Lumbar Standing: Flexion - Symptoms During Testing: Increases Lumbar Standing: Flexion - Symptoms After Testing: No worse Lumbar Standing: Extension - Mechanical Response: No effect Lumbar Standing: Extension - Symptoms During Testing: Decreases Lumbar Standing: Extension - Symptoms After Testing: No worse Lumbar Standing: Right Side Glides - Mechanical Response: No effect Lumbar Standing: Right Side [place] - Symptoms During Testing: No effect Lumbar Standing: Right Side [place] - Symptoms After Testing: No effect Lumbar Standing: Left Side [place] - Mechanical Response: No effect Lumbar Standing: Left Side [place] - Symptoms During Testing: No effect Lumbar Standing: Left Side [place] - Symptoms After Testing: No effect Lumbar Lying: Flexion - Mechanical Response: No effect Lumbar Lying: Flexion - Symptoms During Testing: No effect Lumbar Lying: Flexion - Symptoms After Testing: No effect Comments:: NA Balance/Special Test Scores Oswestry Low Back Score: 33 Goals Goal 1:: Patient to be I with HEP Goal Time Frame: 4-6 Weeks Goal 2:: Patient to demonstrate 50% improvement with improved function and ADLS Goal Time Frame: 4-6 Weeks Goal 3:: Patient to improve lumbar ROM for function of recovery to put on shoes Goal Time Frame: 6-8 Weeks Goal 4:: Patient to improve back oswestry score by 5 points to improve function Goal Time Frame: 4-6 Weeks Rehabilitation Potential Physical Therapy Diagnosis: This patient has lumbar pain with positioning and motion testing worse with walking /standing thus has h/o lumbar surgery thus benefit from skilled PT Rehabilitation Potential: Good Anticipated Interventions Text: Thank you for the opportunity to evaluate your patient. For Medicare and Medicare HMO plans, please review the plan of care and approve it. It will need to be FAXED BACK to us at [phone] for Medicare purposes. For Medicare only, by signing this I certify the plan of care. Please let me know if there are questions or concerns regarding this plan of care. Physician Signature: Date:
--- NOTE | 2024-06-01 16:03 | HP.PTEVAL_ITS ---
Patient's Visit Information Visit Information Visit Information: JAI BABB is a 78 year old M referred to Physical Therapy by JORDY GHOTRA with a diagnosis of LUMBAR RADICULPOATHY. Date of Evaluation: 06/01/24 Physical Therapist: David Correa PT, Cert MDT, OCS Visit Plan Frequency: 2x /Week Duration: 4 Weeks Plan: PT INTERVENTIONS DLS ,POSTURAL EX'S ,LE FLEXABILITY ,BLE STRENGTHENING AND FUNCTIONAL STRENGTHENING Subjective Subjective: This 78 y/o male presents to physical therapy with lumbar radiculopathy.Patient has back pain 25 years ,patient has lumbar surgery surgery . Patient has had pain pain management in past ,Dr Angel ~ 1 month ago which is last injection. Patient has had epidural injection several times.Recommended to see surgeon. Patient pain located symmetrical lumbar and occasional right leg pain. Aggravating factors standing /walking and difficulty with lifting. Alleviating factors rest and medication. Medication hydrocodone. Coughing/sneezing -,Denies paresthesia/tingling-. Patient pain can affects sleeping. Patient has PT in past. Patient has had imaging in past , Patient also had Left TSR. Patient goals to decrease pain. Patient condition affects QOL and function. SOCAIL : VOACTION: retired Pain Bilateral Back: Pain Intensity (Out of 10): 7 Pain Intensity Range: 9 and 10 Objective Objective: POSTURE: mild forward posture GAIT:mild forward posture reciprocal pattern slow [place] FLEXABILITY: hamstrings min tight ,piriformis mod tight PROM: hip IR 20 degrees LUMBAR ROM: flexion mod loss ,extension mod loss ,side glides mod loss MMT: quads/hams 4/5 ,hip flexion 4/5 ,gloria 4/5 Special Tests L/S Slump test left side: Negative L/S Slump test right side: Negative L/S Left Straight Leg Raise: Negative L/S Right Straight Leg Raise: Negative Lumbar Standing: Flexion - Mechanical Response: No effect Lumbar Standing: Flexion - Symptoms During Testing: Increases Lumbar Standing: Flexion - Symptoms After Testing: No worse Lumbar Standing: Extension - Mechanical Response: No effect Lumbar Standing: Extension - Symptoms During Testing: Decreases Lumbar Standing: Extension - Symptoms After Testing: No worse Lumbar Standing: Right Side Glides - Mechanical Response: No effect Lumbar Standing: Right Side [place] - Symptoms During Testing: No effect Lumbar Standing: Right Side [place] - Symptoms After Testing: No effect Lumbar Standing: Left Side [place] - Mechanical Response: No effect Lumbar Standing: Left Side [place] - Symptoms During Testing: No effect Lumbar Standing: Left Side [place] - Symptoms After Testing: No effect Lumbar Lying: Flexion - Mechanical Response: No effect Lumbar Lying: Flexion - Symptoms During Testing: No effect Lumbar Lying: Flexion - Symptoms After Testing: No effect Comments:: NA Balance/Special Test Scores Oswestry Low Back Score: 33 Goals Goal 1:: Patient to be I with HEP Goal Time Frame: 4-6 Weeks Goal 2:: Patient to demonstrate 50% improvement with improved function and ADLS Goal Time Frame: 4-6 Weeks Goal 3:: Patient to improve lumbar ROM for function of recovery to put on shoes Goal Time Frame: 6-8 Weeks Goal 4:: Patient to improve back oswestry score by 5 points to improve function Goal Time Frame: 4-6 Weeks Rehabilitation Potential Physical Therapy Diagnosis: This patient has lumbar pain with positioning and motion testing worse with walking /standing thus has h/o lumbar surgery thus benefit from skilled PT Rehabilitation Potential: Good Anticipated Interventions Patient/Client Instruction: Educate patient on: Condition and Plan of Care For the Purpose of:: To decrease pain, To increase ROM, To improve muscle performance and motor function, To increase tolerance to activity/condition/position, To improve ability of physical actions for home/community/work/leisure, To improve health of tissue, To decrease soft tissue restriction, To increase flexibility/ROM and To improve tolerance to ADL's Therapeutic Exercise to Include: Strength training, Postural training and Dynamic Lumbar Stabilization For the Purpose of:: To decrease swelling/inflammation, To improve muscle performance and motor function, To improve ability to perform ADL's, To increase tolerance to activity/condition/position, To improve ability of physical actions for home/community/work/leisure, To improve health of tissue, To decrease soft tissue restriction, To increase flexibility/ROM and To improve tolerance to ADL's TENS: Yes IF ES: Yes Cryotherapy (ice pack, ice massage): Yes Thermo therapy (hot pack): Yes Ultrasound (thermal/non thermal): Yes For the Purpose of:: To decrease pain, To increase ROM, To improve nutrient delivery to tissue, To increase oxygenation perfusion, To improve health of tissue and To decrease soft tissue restriction Text: Thank you for the opportunity to evaluate your patient. For Medicare and Medicare HMO plans, please review the plan of care and approve it. It will need to be FAXED BACK to us at [phone] for Medicare purposes. For Medicare only, by signing this I certify the plan of care. Please let me know if there are questions or concerns regarding this plan of care. Physician Signature: Date:
--- NOTE | 2024-07-02 10:58 | HP.PTREVAL ---
Re-Evaluation Intro: JORDY GHOTRA, It has been my pleasure to treat JAI BABB over the last 9 visits for LUMBAR RADICULPOATHY. Please see the progress note below for an update on the physical therapy plan of care! Subjective Subjective: Patient therapy has been helping .Although ,difficulty with standing , But I get tired Plan to get brain scan to R/O Parkinson's Objective Objective/Function: Patient will cont to benefit from skilled PT to improve function and decrease pain POSTURE: mild forward posture GAIT:mild forward posture reciprocal pattern slow [place] trunk flexed FLEXABILITY: hamstrings min tight ,piriformis mod tight PROM: hip IR 20 degrees LUMBAR ROM: flexion mod loss ,extension mod loss ,side glides mod loss MMT: quads/hams 4/5 ,hip flexion 4/5 ,gloria 4/5 Plan Plan Plan: PT INTERVENTIONS DLS ,POSTURAL EX'S ,LE FLEXABILITY ,BLE STRENGTHENING AND FUNCTIONAL STRENGTHENING Balance/Gait/Functional tests Balance/Special Test Scores Oswestry Low Back Score: 26 Goals Goals Goal 1:: Patient to be I with HEP Goal Time Frame: 4-6 Weeks Goal Progress: Progressing Goal 2:: Patient to demonstrate 50% improvement with improved function and ADLS Goal Time Frame: 4-6 Weeks Goal Progress: Progressing Goal 3:: Patient to improve lumbar ROM for function of recovery to put on shoes Goal Time Frame: 6-8 Weeks Goal Progress: Progressing Goal 4:: Patient to improve back oswestry score by 5 points to improve function Goal Time Frame: 4-6 Weeks Goal Progress: Progressing Anticipated Interventions Anticipated Interventions Patient/Client Instruction: Educate patient on: Condition and Plan of Care For the Purpose of:: To decrease pain, To increase ROM, To improve muscle performance and motor function, To increase tolerance to activity/condition/position, To improve ability of physical actions for home/community/work/leisure, To improve health of tissue, To decrease soft tissue restriction, To increase flexibility/ROM and To improve tolerance to ADL's Therapeutic Exercise to Include: Strength training, Postural training and Dynamic Lumbar Stabilization For the Purpose of:: To decrease swelling/inflammation, To improve muscle performance and motor function, To improve ability to perform ADL's, To increase tolerance to activity/condition/position, To improve ability of physical actions for home/community/work/leisure, To improve health of tissue, To decrease soft tissue restriction, To increase flexibility/ROM and To improve tolerance to ADL's TENS: Yes IF ES: Yes Cryotherapy (ice pack, ice massage): Yes Thermo therapy (hot pack): Yes Ultrasound (thermal/non thermal): Yes For the Purpose of:: To decrease pain, To increase ROM, To improve nutrient delivery to tissue, To increase oxygenation perfusion, To improve health of tissue and To decrease soft tissue restriction Re-Evaluation Ending Re-evaluation ending: Please do not hesitate to contact me at [phone] by phone or if you have questions or concerns regarding this new plan of care! Sincerely, David Correa, PT, Cert MDT, OCS
--- NOTE | 2024-07-16 11:23 | HP.PTDCSUM ---
Discharge Summary D/C summary: It has been my pleasure to treat JAI BABB referred by JORDY GHOTRA, with the diagnosis of LUMBAR RADICULPOATHY for a total of 12 visit(s). Discharge Date: 07/16/24 Please see the following information for a summary of their discharge status. Subjective Subjective: Seen Neurologist R/O parkinson Pain Bilateral Back: Pain Intensity (Out of 10): 3 Overall Improvement % Improvement: 35 Objective Objective/Function: GAIT:mild forward posture reciprocal pattern slow [place] trunk flexed FLEXABILITY: hamstrings min tight ,piriformis mod tight PROM: hip IR 20 degrees LUMBAR ROM: flexion mod loss ,extension mod loss ,side glides mod loss MMT: quads/hams 4/5 ,hip flexion 4/5 ,gloria 4/5 Goals Goal 1:: Patient to be I with HEP Goal Progress: Goal Met Goal 2:: Patient to demonstrate 50% improvement with improved function and ADLS Goal Progress: Progressing Goal 3:: Patient to improve lumbar ROM for function of recovery to put on shoes Goal Progress: Progressing Goal 4:: Patient to improve back oswestry score by 5 points to improve function Goal Progress: Progressing Plan Plan: D/C D/C Information Discharge Comments: GYM AND HEP d/c sentence: If there are questions or concerns regarding this patient's physical therapy, please feel free to call me at [phone]. Thank you for the referral of this patient. Sincerely, David Correa, PT, Cert MDT, OCS Balance/Gait/Functional tests Balance/Special Test Scores Oswestry Low Back Score: 20 Improvement % Improvement: 35
== END 2024-07-16 19:00 | disposition home or self-care (01) ==
LOC: PT 10:30
PROVIDERS: PCP Nurse Practitioner
DX: M54.16 Radiculopathy, lumbar region (principal)
CPT/HCPCS: 97110; 97162; 97530

== ENCOUNTER 2025-01-22 11:00 | Outpatient (RCR) | payer MEDICARE, SELFPAY ==
--- NOTE | 2024-12-23 11:52 | HP.PTEVAL ---
Patient's Visit Information Visit Information Visit Information: JAI BABB is a 79 year old M referred to Physical Therapy by KELLY OROZCO with a diagnosis of s/p lumbar discectomy early December , L umabr ddd.. Date of Evaluation: 12/23/24 Physical Therapist: Dale Reyes, DPT, OCS, CSCS Visit Plan Frequency: 3x /Week Duration: 4-6 Weeks Plan: 3x/week for 3-6 weeks IE HEP: walk short 2x/day, stationary bike 5 min 2x/day and PT/SKC/ trunk rotation 10x 2x/day and quad stretch supine 30 4x 2x/day. Treat with instruct in Mat based core strength and lumbar ROM to HEP with pics, then general gym based core/LE and posture strength to I with list. Use STM to lumbar paraspinals as needed and rollout and streetch quads/psoas/HS to HEP MH as needed. Postural correction and body mechanics. Subjective Subjective: Sent over by surgeon [facility] had surgery on back 6 weeks ago discectomy. They were causing pain with ambulation. Pain with sitting. Would lose balance when walking. Walking up a hill was tough and legs did not keep up. Had check for Parkinsons and put on meds but it did not help as a diagnostic. Will return there down the road. Had a clean out of back yrs ago also. It helped a little bit but did not do full surgery. This recent surgery did not help like he thought it would. Sees pain doctor also prior to this surgery. Had rehab prior to surgery. Cleaned up OA this time and did discectomy. Is not better now than before surgery but may have been for a little bit. Homework was to walk. Did not do it and now asked for rehab. Took a while to get script as it is a [facility] surgeon. I coud walk at first but now he is harder to walk in am painwise but gets better. Walks better in evening than am. Pain is limiting factor in am mostly R sided. Spends a lot of time in bed watching TV, can do menial things at home. Sleeps alot bc he feels better in bed. No leg symptoms . Basic ADLs all I. Not mployed. Hobbies: trap shooting: can do it gently, limited. Pain R LB: Pain Intensity (Out of 10): 4 Pain Intensity Range: 0 and 6 Comment: sitting is pretty good. Objective Objective: Walks slightly hunched over but can stand up tall with cues, slight increase R LBP. Slight R trendelenberg.Has some slight shuffling as he walks further than 200 feet today. Trasers chair and bed are I. Core strength 4-/5 Flat lordosis in posture. Tightness apparent in psoas and quads with lying and standing tall. HS tight B at -40 90/90 test. Tender to PA pressure in LN. Lumbar AROM ext max limited to barely neutral with increased LBP, SB are not a problem, flexion is min limtied but not painful. LE AROM WFL outside of tightness in upper legs. reflexes 2/3 patella and achilles B Sensation LE WNL to gross light touch, coordination to reciprocal toe tap is good. Strength hips 4/5, knees 4/5 and ankles 4/5 without myotomal problems. - SLR, - slump test. Balance/Special Test Scores Oswestry Low Back Score: 23 Goals Goal 1:: I appropriate HEP for ROM and core strnegth and gym for general strength without increased pain Goal Time Frame: 4-6 Weeks Goal 2:: LBP 1/10 at worst and intermittent.manageable Goal Time Frame: 4-6 Weeks Goal 3:: stand up tall without VC while ambuating Goal Time Frame: 4-6 Weeks Goal 4:: Pain LB 80% better with activity Goal Time Frame: 4-6 Weeks Goal 5:: oswestry score 10 or better Goal Time Frame: 4-6 Weeks Rehabilitation Potential Rehabilitation Potential: Fair Anticipated Interventions Patient/Client Instruction: Educate patient on: Condition and Plan of Care For the Purpose of:: To decrease pain, To increase ROM, To improve nutrient delivery to tissue, To improve muscle performance and motor function and To increase tolerance to activity/condition/position Therapeutic Exercise to Include: Strength training, Postural training, Flexibilty training, Relaxation training, Passive ROM and Active ROM For the Purpose of:: To decrease pain, To increase ROM, To improve nutrient delivery to tissue, To improve muscle performance and motor function, To increase tolerance to activity/condition/position, To improve ability of physical actions for home/community/work/leisure and To improve gait and locomotor functions Manual Therapy Techniques to Include: Mobilization, Passive ROM and Soft tissue mobilization For the Purpose of:: To decrease pain, To increase ROM, To improve nutrient delivery to tissue, To improve muscle performance and motor function and To increase tolerance to activity/condition/position Thermo therapy (hot pack): Yes For the Purpose of:: To decrease pain and To increase ROM Text: Thank you for the opportunity to evaluate your patient. For Medicare and Medicare HMO plans, please review the plan of care and approve it. It will need to be FAXED BACK to us at [phone] for Medicare purposes. For Medicare only, by signing this I certify the plan of care. Please let me know if there are questions or concerns regarding this plan of care. Physician Signature: Date:
--- NOTE | 2025-03-11 13:21 | HP.PT.NRP ---
Patient Information Patient Information: JAI BABB was seen in my office for initial evaluation on 12/23/24. The following Plan of Care was established for this patient: POC Established Initial Frequency: 3x /Week Initial Duration: 4-6 Weeks Anticipated Interventions Patient/Client Instruction: Educate patient on: Condition and Plan of Care For the Purpose of:: To decrease pain, To increase ROM, To improve nutrient delivery to tissue, To improve muscle performance and motor function and To increase tolerance to activity/condition/position Therapeutic Exercise to Include: Strength training, Postural training, Flexibilty training, Relaxation training, Passive ROM and Active ROM For the Purpose of:: To decrease pain, To increase ROM, To improve nutrient delivery to tissue, To improve muscle performance and motor function, To increase tolerance to activity/condition/position, To improve ability of physical actions for home/community/work/leisure and To improve gait and locomotor functions Manual Therapy Techniques to Include: Mobilization, Passive ROM and Soft tissue mobilization For the Purpose of:: To decrease pain, To increase ROM, To improve nutrient delivery to tissue, To improve muscle performance and motor function and To increase tolerance to activity/condition/position Thermo therapy (hot pack): Yes For the Purpose of:: To decrease pain and To increase ROM Last Seen Last Seen: This patient was last seen in our office 01/22/25. Pertinent comments regarding their Physical therapy will appear below: Pt seen 13 visits of POC but di not schedule or attend any further visits. At this point, it has been over a month and I will discontinue for nonattendance. At this point I will be discontinuing this patient from physical therapy. I would be happy to see this patient again in the future if found appropriate by the physician. Thank you! Dale Reyes, DPT, OCS, CSCS Balance/Gait/Functional tests Balance/Special Test Scores Oswestry Low Back Score: 23
== END 2025-01-22 19:00 | disposition home or self-care (01) ==
LOC: PT 11:00
PROVIDERS: PCP Nurse Practitioner
DX: M51.371 Other intervertebral disc degeneration, lumbosacral region with lower extremity pain only (principal); Z98.890 Other specified postprocedural states
CPT/HCPCS: 97110; 97140; 97161; 97530

== ENCOUNTER → 2025-03-23 | Outpatient (CLI) | payer MEDICARE, SELFPAY ==
--- NOTE | 2025-03-23 09:58 | PCM.CR.HP2 ---
CR - History & Physical General Arrival date:: 03/23/25 Arrival time:: 09:59 Date of Referral:: 02/17/25 Date of CR Evaluation:: 03/23/25 Referring Physician: Dr. Funes Primary Diagnosis: S/P CABG History of Present Cardiac Event Onset Date Coronary Artery Bypass Graft:: Yes (onset 02/08/2025) Vessel: LEBRON-LAD, SVG-OM1, SVG-OM2 Medications Ambulatory Orders Medication Instructions Recorded Prevalite Packet 1 pkt DAILY 11/13/20 acetaminophen 500 mg tablet 1,000 mg PO BID 11/13/20 amlodipine 5 mg tablet 5 mg PO DAILY 11/13/20 cholecalciferol (vitamin D3) 50 2,000 unit PO DAILY 11/13/20 mcg (2,000 unit) capsule lisinopril 20 1 ea PO DAILY 11/13/20 mg-hydrochlorothiazide 25 mg tablet meloxicam 15 mg tablet 15 mg PO DAILY 11/13/20 rosuvastatin 10 mg tablet 10 mg PO QHS 11/13/20 sertraline 100 mg tablet 150 mg PO DAILY 11/13/20 Allergies Allergies carbamazepine Allergy (Verified 12/22/23 15:47) Anaphylaxis atorvastatin Adverse Reaction (Verified 12/22/23 15:47) Pain in joints lovastatin Adverse Reaction (Verified 12/22/23 15:47) Pain in joints Lvjqqio-YIK-SoS Reductase Inhibitor (Vyayuhu-Yne-Kvt Reductase Inhibitor) Adverse Reaction (Verified 12/22/23 15:47) Pain in joints Sleep Disorder Evaluation Hx of Sleep Apnea: Yes Do you snore loudly (louder than talking or can be heard through closed doors)?: No (Pt on CPAP) Do you often feel tired/ fatigued/ sleepy during daytime?: No Has anyone observed you stop breathing during sleep?: No History of Hypertension (for STOP score): No STOP Results: Negative Advanced Directives Advanced Directives Do you have a Healthcare Power of 3Rd 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 Living Will: Yes Advance Directives Information Provided: Yes Advance Directives on File: No DNR Order?:: No Past Medical History Covid-19 Screening Physicial Symptoms Other Clinical Concerns Exposure Risk Pertinent Comorbidities 65 years or older:: Yes Has a serious heart condition:: Yes Past Medical Illness Past Medical History (Updated 12/22/23 @ 16:51 by EDEN Lucas) Back pain M54.9 Social History Smoking History Smoking Status: Former smoker Years Smokin (Pt stopped 50 years ago ) Alcohol Use Alcohol Usage: No Occupation Occupation (List type of work in comments):: Retired Social Environment Status Marital Status: Current Living Arrangements Living Environment:: Spouse Children How many children do you have?: 1 Do any of your children live nearby?: Yes Safety Do you feel safe in your surroundings?: Yes Assistance Do you need any assistance at home?: no Review of Systems Review of Systems Hints Review of Present Symptoms: Reports Shortness of Breath with Exertion, Operative Discomfort, Fatigue and Sleep - Normal; Denies Shortness of Breath at Rest, PVD, Angina, Wound Healing, Dizziness/Lightheadedness, Heart Arrhythmia/Irregularities, Appetite - Normal, Appetite - Special Diet or Sexual Changes Pain Is Patient Pain Free?: No Pain Location: back Pain Level: 12/10 Risk Factor Assessment Chief Complaint Chief Complaint: S/P CABG Vital Signs Pulse Ox: 96 Blood Pressure: 118/70 Pulse Pulse Rate: 75 Hypertension How long have you been treated?: over 40 years Blood Pressure Sitting - Right Arm: 118/70 Stress Stress: Long-standing and Home/Family Diabetes Nutrition Referral for Diabetes: No Obesity Height: 5 ft 10 in Weight:: 178 lb Weight in Pounds: 178.0 lbs Body Mass Index (BMI): 25.5 Nutritional Referral for Obesity: No Physical Inactivity Physical Inactivity: Reg Exercise 30 min/day (walking) Risk Stratification Risk Guidelines: Moderate Risk: Risk Factor for Smoking, Risk Factor for Diabetes, Risk Factor for Obesity and Risk Factor for Sedentary Lifestyle and Highest Risk: Risk Factor for Dyslipidemia, Risk Factor for Hypertension and Risk Factor for Depression For Smoking Smoking Risk Guidelines For Dyslipidemia Dyslipidemia Risk Guidelines For Diabetes Mellitus Diabetes Risk Guidelines For Obesity/Overweight Obesity/Overweight Risk Guidelines For Hypertension Hypertension Risk Guidelines For Sedentary Lifestyle Sedentary Lifestyle Risk Guidelines For Depression Depression Risk Guidelines Motivation Motivation to Participate On a scale of 1 to 10, how prepared are you to commit to attending program?: 10 What do you see as barriers to successfully being able to complete the program?: nothing What do you see as the benefits of succesfully completing the program? In other words, what do you hope to get out of participating in the program?: stronger, more energy Are there issues you are dealing with that will interfere with completing the program?: no Do you have a spouse or signficant other, family or friends who will help support you to complete the program?: yes
[2025-03-23 10:04] VITALS: BP 118/70; PULSE 75; O2SAT 96
--- NOTE | 2025-03-23 10:04 | PCM.CR.ITP ---
Diagnosis General Information Admitting Diagnosis: SP CABG Personal Learning Style:: Audio/Visual Barriers to Learning: No Barriers Stage of change r/t lifestyle modifications:: Contemplation Gave educational material for:: Treating Heart Disease, How The Heart Works, What it means to have Heart Disease, How Coronary Artery Disease is Diagnosed, Heart Procedures, What Heart Medications Do, Risk Factors & Modifications, Living an Active Life, Nutrition, Emotions & Heart Disease, Stress Management & Relaxation and Sleep Disorders & Heart Disease Education/Goals Cardiac Rehabilitation Goals Personal Goals: Initial Assessment: Improve management of stress and emotions, Improve energy level, Get back to work, or to resume activities faster, Improve knowledge of cardiac disease, Improve muscle strength and endurance, Improve diet and eating habits (eat healthier) and Control risk factors (learn risk factor modification) Scale for measuring improvement of personal goals Diagnosis & Disease Process Outcomes/Goals: Pt IDs own risk factors & lifestyle modifications by Session 10, Verbalizes symptoms of angina & response by session 3., Pt independently manages and Other Additional Outcomes/Goals: Plan/Interventions: Assist Pt to ID & engage in lifestyle modification to reduce CVD risk, Instruct on individual risk factors, Review symptoms of angina & emergency actions, Review secondary diagnosis & identify educational needs. and Other see comment 30 day Reassessments:: Not Met 30 day Reassessments:: Not Met 30 day Reassessments:: Not Met 30 day Reassessments:: Not Met Final Reassessments:: Not Met Safety Referral to Physical Therapy: No Referral to [facility] Case Management: No Fall Risk Assessed:: Yes Assistive Devices:: None Exercise - Initial Assessment Visit Date of Eval: 03/23/25 (initial eval ) Mets: Pre-: >3 METS for 30 minutes by discharge, >5 METS for 30 minutes by discharge, >7 METS for 30 minutes by discharge and Unable to meet goal due to: (see comment below) Physician Prescribed Exercise Modalities: Treadmill, Schwinn Airdyne AD-7, SciFit Stepper, SciFit Pro-II Ergometer and SciFit Lateral Armored Cable Machine Operator Frequency: 3x/week for 12 weeks [36 sessions] Intensity: 60-80% of age predicted maximum heart rate reserve Duration: 30 - 45 minutes Current METSs:: 3 Target Heart Rate:: 85-107 Resting Blood Pressure: 118/70 EKG Type: NSR Outcomes & Goals Goals:: Verbalizes understanding of THR, RPE & goal METS by session 6, Documents in home exercise log/reports 30 min aerobic 5 day/wk by DC, Demonstrates accurate pulse taking by DC and Other additional outcome/goals: see below Intervention & Plan Exercise Program Goals: Instruct on personal THR & RPE, Instruct on MET level & personal MET goal, Show patient to take own pulse /validate performance until accurate, Instruct on home exercise and Other additional plan/int Physical Activity Home Exercise Physical Activity - Home Exercise: Safe Exercise, Warm-up, Self-monitoring, Cool-Down, Home Exercise > 30 min Daily and Sitting Time <3 hours/daily Outcomes & Goals Outcomes/Goals: Demonstrates correct Warm-up/exercise Cool-Down (S3) if = 2.5 METs, Verbalizes symptoms of exercise intolerance by Session 3 (S3), Demonstrate safe equipment use (S3) & follows exercise prescrition (6) and Other: See below Intervention & Plan Plan/Intervention: Instruct warm-up & cool-down if exercising at > 2 METs, Instruct on symptoms of exercise intolerance & actions to take, Instruct & monitor on saf, Assess intial functional capacity & safety risk and Other See below Nutrition - Initial Assessment Program Goals Nutrition Program Goals Patient has diagnosis of Hyperlipidemia (ICD E78)?: Yes Visit Date of Eval: 03/23/25 (initial eval ) Cholesterol/Lipids (Other Core Measures) Determine presence & major risk factors that modify LDL goal: Cigarette smoking, Hypertension or hypertensive medication, Low HDL cholesterol <40 mg/dL*, Family history of premature CHD in Male < 55 years: female <65 yearsFa and Age men > 45 years; women >/= 55 years Outcomes/Goals: Pt IDs own risk factors & lifestyle modifications by Session 10, Verbalizes symptoms of angina & response by session 3., Pt independently manages and Other Additional Outcomes/Goals: Intervention/Plan: Advocate for lipid panel cholesterol medication if applicable, Instruct on personal lipid levels & lipid goals/NCEP guidelines, Instruct on cholesterol and Other additional plan/int Diabetes (Other Core Measures) Diabetes Type: Not Applicable Weight Mgt (Other Care) Height: 5 ft 10 in Weight:: 178 lb BMI: 25.5 Diagnosis Overweight/Obesity BMI> 30% ICD-10 E66: No Diagnosis High BMI/Morbid Obesity BMI> 35% ICD-10 Z68: No Outcomes/Goals: Pt sets, maintains & shows weight loss goal & trend during rehab and Other additional outcomes/goals Intervention/Plan: Instruct on ideal BMI & set weight loss goal w/patient, Assist pt to ID & incorporate diet changes for weight loss by S9, Refer to Structured Weight Loss program as appropriate, Encourage goal of using 250-300dcal per session for weight loss and Other additional plan/interventions Healthy Eating Habits Will attend diet classes:: Yes Outcomes/Goals:: Consume diet rich in vegs,fruits,whole grain/high fiber,fish,lean meat, Limit sat/trans fats,cholesterol & added salts & sugars and Other additional outcome/goals: Intervention/Plan:: Assess current eating habits and Other Additional plan/interventions Education Gave educational materials for:: Signs & symptoms of hypoglycemia, Signs & symptoms of hyperglycemia, Relate diabetes to coronary artery disease and Healthy eating Core - Initial Assessment Visit Date of Eval: 03/23/25 (initial eval) Medication Compliance Preventative Medication(s):: Aspirin, JOSH inhibitor, Clopidogrel/P2Y12 inhibit and Statin/lipid H/O mental health issues: depression, anxiety, or addiction?: Yes Doesn’t believe in the benefits of treatment?: No Believes medications are unnecessary or harmful?: No Has a concern about medication side effects?: No Expresses concern over the cost of medications?: No Outcomes/Goals: Verbalizes medications,desired effect & common side effects @ DC, Pt self-reports following medication regimen, Keeps card in wallet w/medications listed by DC and Other additional outcome/goals: Interventions/plans: Instruct on medication effects & side effects, Review medication list w/patient every two weeks, Instruct importance of taking meds as ordered & assist problem solving and Other additional Tobacco Use Tobacco Use: Non-smoker How long ago did you quit using tobacco products?: Greater than or equal to 6 months ago Do you use smokeless tobacco?: No Outcomes/Goals: Smoking cessation achieved or maintained by discharge, Identify aids/strategies for achieving smoking cessation by session 6 and Other additional outcome/goals Interventions/plan: Instruct on effects of smoking & provide smoking cessation resource, Assist pt to set quit date & provide encouragement, Assist pt to develop strategies to achieve/maintain quit date, Assist pt w/nicotine replacement & medication for cessation success and Other additional plan/interventions Hypertension Hypertension Diagnosis:: Hypertension ICD-10 I10 Resting Blood Pressure:: 118/70 Citizen Of The [place] Heart Association Hypertension Guidelines Outcomes/Goals: Able to verbalize/achieve optimal blood pressure <130/80, Incorporates diet changes & exercise for blood pressure control by DC and Other additional outcomes/goals Interventions/plan: Instruct on optimal blood pressure, hypertension & medications, Instruct on effects of sodium, alcohol, stress, exercise &hypertension and Other additional plan/interventions Tobacco Cessation Referral Smoking Cessation Referral:: No Individual Education/Counseling:: No Education Schedule Given:: Yes Psychosocial - Initial Assess VIsit Date of Eval: 03/23/25 (initial eval ) History of previous Mental disease:: Yes History of Emotional Disorders: Anxious and Depression (Pt is on Zoloft an Lorazepam. Pt denies need for counseling at this time.) Target Goals Target Goals Referral to Behavioral Health PS - Interventions: Yes: Attend Stress Management Classes Outcomes/Goals: See list Psychosocial Outcomes/Goals:: ID's personal stressors & 2 strategies to manage stress by discharge and Other Additional outcome/goals: Intervention/Plan: See List Interventions/Plan:: Assess stressors,coping strategies & signs of derpression on admission, Instruct/assist pt to develop coping & personal stress Mgt strategies, Refer to Behavioral Health if appropriate, Refer to Physician if appropriate, Instruct patient to recognize signs & symptoms of depression, Instruct patient to recog and Other additional plan/intervention Patient Health Questionnaire PHQ-9 Screening Initial Assessment: 1. Little interest or pleasure in doing things: Nearly every day 2. Feeling down, depressed, or hopeless: Nearly every day 3. Trouble falling or staying asleep, or sleeping too much: More than half the days 4. Feeling tired or having little energy: Nearly every day 5. Poor appetite or overeating: Several days 6. Feeling bad about yourself -- or that you are a failure or have let yourself or your family down: Nearly every day 7. Trouble concentrating on things, such as reading the newspaper or watching television: Nearly every day 8. Moving or speaking so slowly that other people could have noticed. Or the opposite - being so fidgety or restless that you have been moving around a lot more than usual: Several days 9. Thoughts that you would be better off , or of hurting yourself in some way: Not at all Total Score: 19 EMA-Q SV Test Statements CAD is a disease of the arteries in the heart: False Examples of risk factors for heart disease: True Angina is chest pain or discomfort: True The benefits of resistance training include: True Eating more meat and dairy products: False Anti-platelet medications such as aspirin are important: True The only effective way to manage stress: False An exercise warm-up slowly increases heart rate: True Prepared, processed foods usually have high sodium: True Depression is common after a heart attack: True The statin medications lower cholesterol: True To control blood pressure, lower the amount of sodium: True If someone gets chest discomfort during walking: I Don't Know Transfats are partially hydrogenated vegetable oils: I Don't Know Sleep apnea that is not treated increases the risk: I Don't Know To control cholesterol, one should become a vegetarian: I Don't Know Someone knows if he/she is exercising at the right level: I Don't Know Diabetes cannot be prevented with exercise & health eating: I Don't Know Stress is a large risk for heart attack: I Don't Know A diet that can help lower blood pressure is rich in: I Don't Know Total Score Total Correct Responses: 12 Self-Efficacy 6-Item Scale Initial Assessment: We would like to know how confident you are in doing certain activities. Please select your confidence level for: Fatigue Select Number: 7 Physical Discomfort or Pain Select Number: 7 Emotional Distress Select Number: 5 Other Symptoms or Health Problems Select Number: 4 Different Tasks and Activities Select Number: 5 Medication Select Number: 7 Total Score:: 5 Nutrition Survey Nutrition Survey Instructions Scoring Instructions Nutrition Survey Initial: Have you lost >10 lbs over the past 2 months without trying?: No Are you following a special diet at home for diabetes, low fat, or low salt?: No Are you interested in meeting with a dietitian for help understanding your diet?: No Do you eat less than 3 meals a day?: Yes Do you eat fatty meats (smallwood, sausage, ribs, etc), fried foods, desserts, large amounts of salad dressings, margarine, butter, or cheese most days?: Yes Do you have food allergies? [Enter types in comment field]: No Do you eat in restaurants more than 3 times a week?: No Do you season food with salt, seasoning salt, or garlic salt?: Yes Do you used canned, boxed, frozen meals, or soups, seasoning packets?: No Total Score:: 3 Exercise - 30-day Assessment Physician Prescribed Exercise Modalities: Treadmill, Schwinn Airdyne AD-7, SciFit Stepper, SciFit Pro-II Ergometer and SciFit Lateral Armored Cable Machine Operator Exercise - 60-day Assessment Physician Prescribed Exercise Modalities: Treadmill, Schwinn Airdyne AD-7, SciFit Stepper, SciFit Pro-II Ergometer and SciFit Lateral Armored Cable Machine Operator Exercise - 90-day Assessment Physician Prescribed Exercise Modalities: Treadmill, Schwinn Airdyne AD-7, SciFit Stepper, SciFit Pro-II Ergometer and SciFit Lateral [place] Exercise - Final/Discharge Physician Prescribed Exercise Modalities: Treadmill, Schwinn Airdyne AD-7, SciFit Stepper, SciFit Pro-II Ergometer and SciFit Lateral Armored Cable Machine Operator Frequency: 3x/week for 12 weeks [36 sessions] Intensity: 60-80% of age predicted maximum heart rate reserve Current METSs:: 3 Target Heart Rate:: 85-107 Nutrition - 30-Day Assessment Weight Mgt (Other Care) Height: 5 ft 10 in Weight:: 178 lb BMI: 25.5 Nutrition - 60-Day Assessment Weight Mgt (Other Care) Height: 5 ft 10 in Weight:: 178 lb BMI: 25.5 Core - Final Assessment Hypertension Resting Blood Pressure:: 118/70 Citizen [place] Heart Association Hypertension Guidelines Core - 60-Day Assessment Hypertension Resting Blood Pressure:: 118/70 Citizen [place] Heart Association Hypertension Guidelines Psychosocial - 30-Day Assess Target Goals Target Goals Referral to Behavioral Health PS - Interventions: Yes: Attend Stress Management Classes Psychosocial - 60-Day Assess Target Goals Target Goals Referral to Behavioral Health PS - Interventions: Yes: Attend Stress Management Classes Psychosocial - 90-Day Assess Target Goals Target Goals Referral to Behavioral Health PS - Interventions: Yes: Attend Stress Management Classes Psychosocial - Final Assessmen Target Goals Target Goals Referral to Behavioral Health PS - Interventions: Yes: Attend Stress Management Classes Nutrition - 90-Day Assessment Weight Mgt (Other Care) Height: 5 ft 10 in Weight:: 178 lb BMI: 25.5 Nutrition - Final Assessment Program Goals Patient has diagnosis of Hyperlipidemia (ICD E78)?: Yes Weight Mgt (Other Care) Height: 5 ft 10 in Weight:: 178 lb BMI: 25.5
[2025-03-23 10:11] VITALS: BP 118/70
[2025-03-23 10:22] VITALS: BMI 25.5
[2025-03-23 11:08] VITALS: BMI 25.5
== END | disposition home or self-care (01) ==
LOC: CR 09:52
DX: Z95.1 Presence of aortocoronary bypass graft (principal)

== ENCOUNTER 2025-03-31 11:15 | Outpatient (RCR) | payer MEDICARE, SELFPAY ==
[2025-03-23 11:08] VITALS: BMI 25.5
== END 2025-04-01 23:59 ==
LOC: CR 11:15
PROVIDERS: Referring Provider Thoracic Surgery (Cardiothoracic Vascular Surgery); Visit Provider Thoracic Surgery (Cardiothoracic Vascular Surgery)
DX: Z95.1 Presence of aortocoronary bypass graft (principal)
CPT/HCPCS: 93798

== ENCOUNTER 2025-04-30 11:15 | Outpatient (RCR) | payer MEDICARE, SELFPAY ==
[2025-03-23 11:08] VITALS: BMI 25.5
--- NOTE | 2025-04-20 09:52 | PCM.CR.ITP ---
Exercise - Initial Assessment Visit Session #:: 12 Physician Prescribed Exercise Modalities: SciFit Stepper, SciFit Pro-II Ergometer and SciFit Lateral [place] Nutrition - Initial Assessment Weight Mgt (Other Care) Height: 5 ft 10 in Weight:: 179 lb 8 oz BMI: 25.7 BMI (Report if calculated above): 25 Psychosocial - Initial Assess Target Goals Target Goals Referral to Behavioral Health PS - Interventions: Yes: Attend Stress Management Classes and No: Referral to Behavioral Health if PHQ-9 score >9: (Pt currently working with PCP to optimize medication regimen for mental health needs) Patient Health Questionnaire PHQ-9 Screening 30-Day Re-eval Assessment: 1. Little interest or pleasure in doing things: Nearly every day 2. Feeling down, depressed, or hopeless: Nearly every day 3. Trouble falling or staying asleep, or sleeping too much: More than half the days 4. Feeling tired or having little energy: Nearly every day 5. Poor appetite or overeating: Several days 6. Feeling bad about yourself -- or that you are a failure or have let yourself or your family down: Nearly every day 7. Trouble concentrating on things, such as reading the newspaper or watching television: Nearly every day 8. Moving or speaking so slowly that other people could have noticed. Or the opposite - being so fidgety or restless that you have been moving around a lot more than usual: Several days 9. Thoughts that you would be better off , or of hurting yourself in some way: Not at all How difficult have these problems made it for you to do your work, take care of things at home, or get along with other people?: Very difficult Total Score: 19 Self-Efficacy 6-Item Scale 30-Day Re-eval Assessment: We would like to know how confident you are in doing certain activities. Please select your confidence level for: Fatigue Select Number: 7 Physical Discomfort or Pain Select Number: 7 Emotional Distress Select Number: 5 Other Symptoms or Health Problems Select Number: 4 Different Tasks and Activities Select Number: 5 Medication Select Number: 7 Total Score:: 5 Nutrition Survey Nutrition Survey Instructions Scoring Instructions Exercise - 30-day Assessment Visit Date of Eval: 04/20/25 Session #:: 12 Physician Prescribed Exercise Modalities: SciFit Stepper, SciFit Pro-II Ergometer and SciFit Lateral [place] [employer] Frequency: 3x/week for 12 weeks [36 sessions] Intensity: 60-80% of age predicted maximum heart rate reserve Duration: 30 - 45 minutes METs - Progression 0.5-1.0 weekly:: 0.5-1 Current METSs:: 3.2 Target Heart Rate:: 85-107 Target RPE 12-16:: 12-16 Current RPE:: 11 Maximum Excercise HR:: 86 Resting Blood Pressure: 114/70 Maximum Exercise Blood Pressure: 124/60 EKG Type: NSR with rare pac/pvc Current Physical Activity or Exercising minutes: 30-45 Outcomes & Goals Goals:: Verbalizes understanding of THR, RPE & goal METS by session 6, Documents in home exercise log/reports 30 min aerobic 5 day/wk by DC and Demonstrates accurate pulse taking by DC Intervention & Plan Exercise Program Goals: Instruct on personal THR & RPE, Instruct on MET level & personal MET goal, Show patient to take own pulse /validate performance until accurate and Instruct on home exercise 30-day Reassessments 30 day Reassessments:: Progressing Reassessment Notes & Comments:: Pt instructed on RPE scale and utilizes correctly during exercise sessions. Pt instructed on how to accurately taking pulse. Physical Activity Home Exercise Physical Activity - Home Exercise: Safe Exercise, Warm-up, Self-monitoring, Cool-Down, Home Exercise > 30 min Daily and Sitting Time <3 hours/daily Outcomes & Goals Outcomes/Goals: Demonstrates correct Warm-up/exercise Cool-Down (S3) if = 2.5 METs, Verbalizes symptoms of exercise intolerance by Session 3 (S3) and Demonstrate safe equipment use (S3) & follows exercise prescrition (6) Intervention & Plan Plan/Intervention: Instruct warm-up & cool-down if exercising at > 2 METs, Instruct on symptoms of exercise intolerance & actions to take, Instruct & monitor on saf and Assess intial functional capacity & safety risk 30-day Reassessments 30 day Reassessments:: Progressing Reassessment Notes & Comments:: Pt instructed on correct warm up and cool down with exercise and demonstrates safe use of equipment. Exercise - 60-day Assessment Physician Prescribed Exercise Modalities: SciFit Stepper, SciFit Pro-II Ergometer and SciFit Lateral [place] Exercise - 90-day Assessment Physician Prescribed Exercise Modalities: SciFit Stepper, SciFit Pro-II Ergometer and SciFit Lateral [place] Exercise - Final/Discharge Physician Prescribed Exercise Modalities: SciFit Stepper, SciFit Pro-II Ergometer and [employer] Lateral [place] Setter Nutrition - 30-Day Assessment Program Goals Nutrition Program Goals Patient has diagnosis of Hyperlipidemia (ICD E78)?: Yes Visit Date of Eval: 04/20/25 Session #:: 12 Cholesterol/Lipids (Other Core Measures) Lipid Medication: Zetia 10mg QD Determine presence & major risk factors that modify LDL goal: Cigarette smoking, Hypertension or hypertensive medication, Low HDL cholesterol <40 mg/dL*, Family history of premature CHD in Male < 55 years: female <65 yearsFa and Age men > 45 years; women >/= 55 years Outcomes/Goals: Pt IDs own risk factors & lifestyle modifications by Session 10, Verbalizes symptoms of angina & response by session 3. and Pt independently manages Intervention/Plan: Advocate for lipid panel cholesterol medication if applicable, Instruct on personal lipid levels & lipid goals/NCEP guidelines and Instruct on cholesterol 30-day Reassessments:: Progressing Reassessment Notes & Comments:: Pt taking statin medication as prescribed and encouraged to discuss with physician about the possible need for updated lipid profile. Diabetes (Other Core Measures) Diabetes Type: Not Applicable Weight Mgt (Other Care) Not Applicable: No Height: 5 ft 10 in Weight:: 179 lb 8 oz BMI: 25.7 BMI (Report if calculated above): 25 Diagnosis Overweight/Obesity BMI> 30% ICD-10 E66: No Diagnosis High BMI/Morbid Obesity BMI> 35% ICD-10 Z68: No Outcomes/Goals: Pt sets, maintains & shows weight loss goal & trend during rehab Intervention/Plan: Instruct on ideal BMI & set weight loss goal w/patient, Assist pt to ID & incorporate diet changes for weight loss by S9, Refer to Structured Weight Loss program as appropriate and Encourage goal of using 250-300dcal per session for weight loss 30 day Reassessments:: Progressing Reassessment Notes & Comments:: Pt at an optimal BMI, pt continues to track weekly weight during rehab sessions. Healthy Eating Habits Will attend diet classes:: Yes Outcomes/Goals:: Consume diet rich in vegs,fruits,whole grain/high fiber,fish,lean meat and Limit sat/trans fats,cholesterol & added salts & sugars Intervention/Plan:: Assess current eating habits 30-day Reassessments:: Progressing Reassessment Notes & Comments:: Pt to attend healthy eating habits classes. Education Gave educational materials for:: Signs & symptoms of hypoglycemia, Signs & symptoms of hyperglycemia, Relate diabetes to coronary artery disease and Healthy eating Nutrition - 60-Day Assessment Weight Mgt (Other Care) Height: 5 ft 10 in Weight:: 179 lb 8 oz BMI: 25.7 BMI (Report if calculated above): 25 Core - 30-Day Assessment Visit Date of Eval: 04/20/25 Session #:: 12 Medication Compliance Preventative Medication(s):: Aspirin, JOSH inhibitor, Statin/lipid and Beta ernie H/O mental health issues: depression, anxiety, or addiction?: Yes Doesn?t believe in the benefits of treatment?: No Believes medications are unnecessary or harmful?: No Has a concern about medication side effects?: No Expresses concern over the cost of medications?: No Outcomes/Goals: Verbalizes medications,desired effect & common side effects @ DC, Pt self-reports following medication regimen and Keeps card in wallet w/medications listed by DC Interventions/plans: Instruct on medication effects & side effects, Review medication list w/patient every two weeks and Instruct importance of taking meds as ordered & assist problem solving 30-day Reassessments:: Progressing Reassessment Notes & Comments:: Pt taking all medications as prescribed. Tobacco Use Tobacco Use: Non-smoker How long ago did you quit using tobacco products?: Greater than or equal to 6 months ago 30-day Reassessments:: Met Hypertension Hypertension Diagnosis:: Hypertension ICD-10 I10 Resting Blood Pressure:: 114/70 [place] [employer] Hypertension Guidelines Peak Exercise Blood Pressure:: 124/60 Outcomes/Goals: Able to verbalize/achieve optimal blood pressure <130/80 and Incorporates diet changes & exercise for blood pressure control by DC Interventions/plan: Instruct on optimal blood pressure, hypertension & medications and Instruct on effects of sodium, alcohol, stress, exercise &hypertension 30 day Reassessments:: Progressing Reassessment Notes & Comments:: Pt currently with resting blood pressure below optimum level. Pt encouraged to maintain a heart healthy low sodium diet. Psychosocial - 30-Day Assess VIsit Date of Eval: 04/20/25 Session #:: 12 History of previous Mental disease:: Yes History of Emotional Disorders: Anxious and Depression (Pt is on Zoloft and Lorazepam, pt denies need for counseling at this time) Target Goals Target Goals Psychosocial Test Tool Used:: PHQ-9 Questionnaire phq-9 Severity See PHQ-9 Score: 19 Total Score:: 19 Referral to Behavioral Health PS - Interventions: Yes: Attend Stress Management Classes and No: Referral to Behavioral Health if PHQ-9 score >9: (Pt currently working with PCP to optimize medication regimen for mental health needs) Outcomes/Goals: See list Psychosocial Outcomes/Goals:: ID's personal stressors & 2 strategies to manage stress by discharge Intervention/Plan: See List Interventions/Plan:: Assess stressors,coping strategies & signs of derpression on admission, Instruct/assist pt to develop coping & personal stress Mgt strategies, Refer to Behavioral Health if appropriate, Refer to Physician if appropriate and Instruct patient to recognize signs & symptoms of depression 30-day Reassessments: 30 day Reassessments:: Progressing (Pt taking all mental health mediations as prescribed and working with PCP to optimize meds and lifestyle. Pt instructed on developing personal coping and stress management strategies. ) Psychosocial - 60-Day Assess Target Goals Target Goals Referral to Behavioral Health PS - Interventions: Yes: Attend Stress Management Classes and No: Referral to Behavioral Health if PHQ-9 score >9: (Pt currently working with PCP to optimize medication regimen for mental health needs) Outcomes/Goals: See list Psychosocial Outcomes/Goals:: ID's personal stressors & 2 strategies to manage stress by discharge Psychosocial - 90-Day Assess Target Goals Target Goals Referral to Behavioral Health PS - Interventions: Yes: Attend Stress Management Classes and No: Referral to Behavioral Health if PHQ-9 score >9: (Pt currently working with PCP to optimize medication regimen for mental health needs) Psychosocial - Final Assessmen Target Goals Target Goals Referral to Behavioral Health PS - Interventions: Yes: Attend Stress Management Classes and No: Referral to Behavioral Health if PHQ-9 score >9: (Pt currently working with PCP to optimize medication regimen for mental health needs) Nutrition - 90-Day Assessment Weight Mgt (Other Care) Height: 5 ft 10 in Weight:: 179 lb 8 oz BMI: 25.7 BMI (Report if calculated above): 25 Nutrition - Final Assessment Weight Mgt (Other Care) Height: 5 ft 10 in Weight:: 179 lb 8 oz BMI: 25.7 BMI (Report if calculated above): 25
[2025-04-20 09:55] VITALS: BP 114/70
[2025-04-20 10:14] VITALS: BMI 25.0; BMI 25.7
[2025-04-20 10:20] VITALS: BP 114/70
== END 2025-05-02 23:59 ==
LOC: CR 11:15
PROVIDERS: Referring Provider Thoracic Surgery (Cardiothoracic Vascular Surgery); Visit Provider Thoracic Surgery (Cardiothoracic Vascular Surgery)
DX: Z95.1 Presence of aortocoronary bypass graft (principal)
CPT/HCPCS: 93798

== ENCOUNTER 2025-05-31 11:15 | Outpatient (RCR) | payer MEDICARE, SELFPAY ==
[2025-04-20 10:14] VITALS: BMI 25.7
--- NOTE | 2025-05-17 10:15 | PCM.CR.ITP ---
Exercise - Initial Assessment Physician Prescribed Exercise Modalities: SciFit Stepper, SciFit Pro-II Ergometer and SciFit Lateral [employer] Nutrition - Initial Assessment Weight Mgt (Other Care) Height: 5 ft 10 in Weight:: 181 lb 8 oz BMI: 26.0 Core - Initial Assessment Hypertension Resting Blood Pressure:: 100/60 [place] [employer] Hypertension Guidelines Psychosocial - Initial Assess Referral to Behavioral Health PS - Interventions: Yes: Attend Stress Management Classes Patient Health Questionnaire PHQ-9 Screening 60-Day Re-eval Assessment: 1. Little interest or pleasure in doing things: Nearly every day 2. Feeling down, depressed, or hopeless: Nearly every day 3. Trouble falling or staying asleep, or sleeping too much: More than half the days 4. Feeling tired or having little energy: Nearly every day 5. Poor appetite or overeating: Several days 6. Feeling bad about yourself -- or that you are a failure or have let yourself or your family down: Nearly every day 7. Trouble concentrating on things, such as reading the newspaper or watching television: Nearly every day 8. Moving or speaking so slowly that other people could have noticed. Or the opposite - being so fidgety or restless that you have been moving around a lot more than usual: Several days 9. Thoughts that you would be better off , or of hurting yourself in some way: Not at all How difficult have these problems made it for you to do your work, take care of things at home, or get along with other people?: Very difficult Total Score: 19 Self-Efficacy 6-Item Scale 60-Day Re-eval Assessment: We would like to know how confident you are in doing certain activities. Please select your confidence level for: Fatigue Select Number: 7 Physical Discomfort or Pain Select Number: 7 Emotional Distress Select Number: 5 Other Symptoms or Health Problems Select Number: 4 Different Tasks and Activities Select Number: 5 Medication Select Number: 7 Total Score:: 5 Exercise - 30-day Assessment Physician Prescribed Exercise Modalities: SciFit Stepper, SciFit Pro-II Ergometer and SciFit Lateral [place] Exercise - 60-day Assessment Visit Date of Eval: 05/17/25 Session #:: 22 Physician Prescribed Exercise Modalities: SciFit Stepper, SciFit Pro-II Ergometer and SciFit Lateral [place] Frequency: 3x/week for 12 weeks [36 sessions] Intensity: 60-80% of age predicted maximum heart rate reserve Duration: 30 - 45 minutes Current METSs:: 4.2 Target Heart Rate:: 85-104 Current RPE:: 10-11 Maximum Excercise HR:: 87 Resting Blood Pressure: 110/64 Maximum Exercise Blood Pressure: 132/70 EKG Type: NSR to ST w/rare PAC Outcomes & Goals Goals:: Verbalizes understanding of THR, RPE & goal METS by session 6, Documents in home exercise log/reports 30 min aerobic 5 day/wk by DC, Demonstrates accurate pulse taking by DC and Other additional outcome/goals: see below Intervention & Plan Exercise Program Goals: Instruct on personal THR & RPE, Instruct on MET level & personal MET goal, Show patient to take own pulse /validate performance until accurate, Instruct on home exercise and Other additional plan/int Physical Activity Home Exercise Physical Activity - Home Exercise: Safe Exercise, Warm-up, Self-monitoring, Cool-Down, Home Exercise > 30 min Daily and Sitting Time <3 hours/daily Outcomes & Goals Outcomes/Goals: Demonstrates correct Warm-up/exercise Cool-Down (S3) if = 2.5 METs, Verbalizes symptoms of exercise intolerance by Session 3 (S3), Demonstrate safe equipment use (S3) & follows exercise prescrition (6) and Other: See below Intervention & Plan Plan/Intervention: Instruct warm-up & cool-down if exercising at > 2 METs, Instruct on symptoms of exercise intolerance & actions to take, Instruct & monitor on saf, Assess intial functional capacity & safety risk and Other See below 30-day Reassessments 30 day Reassessments:: Progressing Reassessment Notes & Comments:: Proper warm up and cool down explained to pt. Pt demonstrates understanding in his daily sessions. Exercise - 90-day Assessment Physician Prescribed Exercise Modalities: SciFit Stepper, SciFit Pro-II Ergometer and SciFit Lateral [employer] Exercise - Final/Discharge Physician Prescribed Exercise Modalities: SciFit Stepper, SciFit Pro-II Ergometer and SciFit Lateral [place] Nutrition - 30-Day Assessment Weight Mgt (Other Care) Height: 5 ft 10 in Weight:: 181 lb 8 oz BMI: 26.0 Nutrition - 60-Day Assessment Program Goals Nutrition Program Goals Patient has diagnosis of Hyperlipidemia (ICD E78)?: Yes Visit Date of Eval: 05/17/25 Session #:: 22 Cholesterol/Lipids (Other Core Measures) Determine presence & major risk factors that modify LDL goal: Cigarette smoking, Hypertension or hypertensive medication, Low HDL cholesterol <40 mg/dL*, Family history of premature CHD in Male < 55 years: female <65 yearsFa and Age men > 45 years; women >/= 55 years Outcomes/Goals: Pt IDs own risk factors & lifestyle modifications by Session 10, Verbalizes symptoms of angina & response by session 3., Pt independently manages and Other Additional Outcomes/Goals: Intervention/Plan: Advocate for lipid panel cholesterol medication if applicable, Instruct on personal lipid levels & lipid goals/NCEP guidelines, Instruct on cholesterol and Other additional plan/int 30-day Reassessments:: Met Reassessment Notes & Comments:: Pt reports taking meds as prescribed Diabetes (Other Core Measures) Diabetes Type: Not Applicable Weight Mgt (Other Care) Height: 5 ft 10 in Weight:: 181 lb 8 oz BMI: 26.0 Diagnosis Overweight/Obesity BMI> 30% ICD-10 E66: No Diagnosis High BMI/Morbid Obesity BMI> 35% ICD-10 Z68: No Outcomes/Goals: Pt sets, maintains & shows weight loss goal & trend during rehab and Other additional outcomes/goals Intervention/Plan: Instruct on ideal BMI & set weight loss goal w/patient, Assist pt to ID & incorporate diet changes for weight loss by S9, Refer to Structured Weight Loss program as appropriate, Encourage goal of using 250-300dcal per session for weight loss and Other additional plan/interventions 30 day Reassessments:: Met Reassessment Notes & Comments:: Pt is at a healthy weight. Pt to attend nutrition class. Healthy Eating Habits Will attend diet classes:: Yes Outcomes/Goals:: Consume diet rich in vegs,fruits,whole grain/high fiber,fish,lean meat, Limit sat/trans fats,cholesterol & added salts & sugars and Other additional outcome/goals: 30-day Reassessments:: Progressing Reassessment Notes & Comments:: Pt is scheduled to attend nutrition class. Heart healthy low sodium diet encouraged. Education Gave educational materials for:: Signs & symptoms of hypoglycemia, Signs & symptoms of hyperglycemia, Relate diabetes to coronary artery disease and Healthy eating Core - Final Assessment Hypertension Resting Blood Pressure:: 100/60 [place] [employer] Hypertension Guidelines Core - 60-Day Assessment Visit Date of Eval: 05/17/25 Session #:: 22 Medication Compliance Preventative Medication(s):: Aspirin, JOSH inhibitor, Statin/lipid and Beta ernie H/O mental health issues: depression, anxiety, or addiction?: Yes Doesn?t believe in the benefits of treatment?: No Believes medications are unnecessary or harmful?: No Has a concern about medication side effects?: No Expresses concern over the cost of medications?: No Outcomes/Goals: Verbalizes medications,desired effect & common side effects @ DC, Pt self-reports following medication regimen, Keeps card in wallet w/medications listed by DC and Other additional outcome/goals: Interventions/plans: Instruct on medication effects & side effects, Review medication list w/patient every two weeks, Instruct importance of taking meds as ordered & assist problem solving and Other additional Tobacco Use Tobacco Use: Non-smoker Hypertension Hypertension Diagnosis:: Hypertension ICD-10 I10 Resting Blood Pressure:: 110/64 Resting Blood Pressure:: 100/60 [place] [employer] Hypertension Guidelines Peak Exercise Blood Pressure:: 132/70 Outcomes/Goals: Able to verbalize/achieve optimal blood pressure <130/80, Incorporates diet changes & exercise for blood pressure control by DC and Other additional outcomes/goals Interventions/plan: Instruct on optimal blood pressure, hypertension & medications, Instruct on effects of sodium, alcohol, stress, exercise &hypertension and Other additional plan/interventions 30 day Reassessments:: Progressing Reassessment Notes & Comments:: Pt's BP's are within AHA normal limits on most days. Will continue to monitor and report to pt's physician if necessary. Tobacco Cessation Referral Smoking Cessation Referral:: No Individual Education/Counseling:: No Education Schedule Given:: Yes Psychosocial - 30-Day Assess Referral to Behavioral Health PS - Interventions: Yes: Attend Stress Management Classes Outcomes/Goals: See list Psychosocial Outcomes/Goals:: ID's personal stressors & 2 strategies to manage stress by discharge and Other Additional outcome/goals: Psychosocial - 60-Day Assess VIsit Date of Eval: 05/17/25 Session #:: 22 History of previous Mental disease:: Yes History of Emotional Disorders: Anxious and Depression (Pt is on Zoloft and Lorazepam. Pt denies need for counseling.) Psychosocial Test Tool Used:: PHQ-9 Questionnaire phq-9 Severity See PHQ-9 Score: 19 Referral to Behavioral Health PS - Interventions: Yes: Attend Stress Management Classes Outcomes/Goals: See list Psychosocial Outcomes/Goals:: ID's personal stressors & 2 strategies to manage stress by discharge and Other Additional outcome/goals: Intervention/Plan: See List Interventions/Plan:: Assess stressors,coping strategies & signs of derpression on admission, Instruct/assist pt to develop coping & personal stress Mgt strategies, Refer to Behavioral Health if appropriate, Refer to Physician if appropriate, Instruct patient to recognize signs & symptoms of depression, Instruct patient to recog and Other additional plan/intervention 30-day Reassessments: 30 day Reassessments:: Progressing Reassessment Notes & Comments:: Pt is on Zoloft and Lorazepam. Pt denies need for counseling. Pt will attend stress management class. Psychosocial - 90-Day Assess Referral to Behavioral Health PS - Interventions: Yes: Attend Stress Management Classes Psychosocial - Final Assessmen Referral to Behavioral Health PS - Interventions: Yes: Attend Stress Management Classes Nutrition - 90-Day Assessment Weight Mgt (Other Care) Height: 5 ft 10 in Weight:: 181 lb 8 oz BMI: 26.0 Nutrition - Final Assessment Weight Mgt (Other Care) Height: 5 ft 10 in Weight:: 181 lb 8 oz BMI: 26.0
[2025-05-17 10:32] VITALS: BP 100/60; BP 110/64; BMI 26.0
== END 2025-06-01 23:59 ==
LOC: CR 11:15
PROVIDERS: Referring Provider Thoracic Surgery (Cardiothoracic Vascular Surgery); Visit Provider Thoracic Surgery (Cardiothoracic Vascular Surgery)
DX: Z95.1 Presence of aortocoronary bypass graft (principal)
CPT/HCPCS: 93798

== ENCOUNTER 2025-06-18 11:15 | Outpatient (RCR) | payer MEDICARE, SELFPAY ==
[2025-05-17 10:32] VITALS: BMI 26.0
--- NOTE | 2025-06-15 09:31 | CR.ITP_ITS ---
Exercise - Initial Assessment Physician Prescribed Exercise Modalities: SciFit Stepper, SciFit Pro-II Ergometer and SciFit Lateral Bit Tapper Nutrition - Initial Assessment Weight Mgt (Other Care) Height: 5 ft 10 in Weight:: 179 lb 8 oz BMI: 25.7 Psychosocial - Initial Assess Referral to Behavioral Health PS - Interventions: Yes: Attend Stress Management Classes Exercise - 30-day Assessment Physician Prescribed Exercise Modalities: SciFit Stepper, SciFit Pro-II Ergometer and SciFit Lateral [place] Exercise - 60-day Assessment Physician Prescribed Exercise Modalities: SciFit Stepper, SciFit Pro-II Ergometer and SciFit Lateral [place] Exercise - 90-day Assessment Visit Date of Eval: 06/15/25 Session #:: 34 Physician Prescribed Exercise Modalities: SciFit Stepper, SciFit Pro-II Ergometer and SciFit Lateral Bit Tapper Frequency: 3x/week for 12 weeks [36 sessions] Intensity: 60-80% of age predicted maximum heart rate reserve Duration: 30 - 45 minutes Current METSs:: 8.3 Target Heart Rate:: 85-114 Current RPE:: 10.5-12 Maximum Excercise HR:: 99 Resting Blood Pressure: 98/48 Maximum Exercise Blood Pressure: 132/60 EKG Type: NSR w/ rare PAC/PVC Outcomes & Goals Goals:: Verbalizes understanding of THR, RPE & goal METS by session 6, Documents in home exercise log/reports 30 min aerobic 5 day/wk by DC, Demonstrates accurate pulse taking by DC and Other additional outcome/goals: see below Intervention & Plan Exercise Program Goals: Instruct on personal THR & RPE, Instruct on MET level & personal MET goal, Show patient to take own pulse /validate performance until accurate, Instruct on home exercise and Other additional plan/int Physical Activity Home Exercise Physical Activity - Home Exercise: Safe Exercise, Warm-up, Self-monitoring, Cool-Down, Home Exercise > 30 min Daily and Sitting Time <3 hours/daily Outcomes & Goals Outcomes/Goals: Demonstrates correct Warm-up/exercise Cool-Down (S3) if = 2.5 METs, Verbalizes symptoms of exercise intolerance by Session 3 (S3), Demonstrate safe equipment use (S3) & follows exercise prescrition (6) and Other: See below Intervention & Plan Plan/Intervention: Instruct warm-up & cool-down if exercising at > 2 METs, Instruct on symptoms of exercise intolerance & actions to take, Instruct & monitor on saf, Assess intial functional capacity & safety risk and Other See below 30-day Reassessments 30 day Reassessments:: Met Reassessment Notes & Comments:: Pt has met his exercise goals. Pt was working at 8.3 METS. Pt has 2 sessions remaining. Pt will be given his exercise prescription as well as community resources to continue his exercise. Exercise - Final/Discharge Physician Prescribed Exercise Modalities: SciFit Stepper, SciFit Pro-II Ergometer and SciFit Lateral Bit Tapper Nutrition - 30-Day Assessment Weight Mgt (Other Care) Height: 5 ft 10 in Weight:: 179 lb 8 oz BMI: 25.7 Nutrition - 60-Day Assessment Weight Mgt (Other Care) Height: 5 ft 10 in Weight:: 179 lb 8 oz BMI: 25.7 Core - 30-Day Assessment Hypertension [employer] Hypertension Guidelines Reassessment Notes & Comments:: Pt's BP's are within AHA normal limits. Will continue to monitor and report to pt's physician if necessary. Core - Final Assessment Hypertension [employer] Hypertension Guidelines Reassessment Notes & Comments:: Pt's BP's are within AHA normal limits. Will continue to monitor and report to pt's physician if necessary. Core - 90 Day Assessment Visit Date of Eval: 06/15/25 Session #:: 34 Medication Compliance Preventative Medication(s):: Aspirin, JOSH inhibitor, Statin/lipid and Beta ernie H/O mental health issues: depression, anxiety, or addiction?: Yes Doesn’t believe in the benefits of treatment?: No Believes medications are unnecessary or harmful?: No Has a concern about medication side effects?: No Expresses concern over the cost of medications?: No Outcomes/Goals: Verbalizes medications,desired effect & common side effects @ DC, Pt self-reports following medication regimen, Keeps card in wallet w/medications listed by DC and Other additional outcome/goals: Interventions/plans: Instruct on medication effects & side effects, Review medication list w/patient every two weeks, Instruct importance of taking meds as ordered & assist problem solving and Other additional Tobacco Use Tobacco Use: Non-smoker Hypertension Hypertension Diagnosis:: Hypertension ICD-10 I10 Resting Blood Pressure:: 98/48 [employer] Hypertension Guidelines Peak Exercise Blood Pressure:: 132/60 Outcomes/Goals: Able to verbalize/achieve optimal blood pressure <130/80, Incorporates diet changes & exercise for blood pressure control by DC and Other additional outcomes/goals Interventions/plan: Instruct on optimal blood pressure, hypertension & medications, Instruct on effects of sodium, alcohol, stress, exercise &hype rtension and Other additional plan/interventions 30 day Reassessments:: Met Reassessment Notes & Comments:: Pt's BP's are within AHA normal limits. Will continue to monitor and report to pt's physician if necessary. Tobacco Cessation Referral Smoking Cessation Referral:: No Individual Education/Counseling:: No Education Schedule Given:: Yes Psychosocial - 30-Day Assess Referral to Behavioral Health PS - Interventions: Yes: Attend Stress Management Classes Psychosocial - 60-Day Assess Referral to Behavioral Health PS - Interventions: Yes: Attend Stress Management Classes Psychosocial - 90-Day Assess VIsit Date of Eval: 06/15/25 Session #:: 34 History of previous Mental disease:: Yes History of Emotional Disorders: Anxious (Pt is on Zoloft and Lorazepam. Pt denies need for counseling.) Psychosocial Test Tool Used:: [employer] QOL Cardiac and PHQ-9 Questionnaire phq-9 Severity See PHQ-9 Score: 19 Referral to Behavioral Health PS - Interventions: Yes: Attend Stress Management Classes Outcomes/Goals: See list Psychosocial Outcomes/Goals:: ID's personal stressors & 2 strategies to manage stress by discharge and Other Additional outcome/goals: Intervention/Plan: See List Interventions/Plan:: Assess stressors,coping strategies & signs of derpression on admission, Instruct/assist pt to develop coping & personal stress Mgt strategies, Refer to Behavioral Health if appropriate, Refer to Physician if appropriate, Instruct patient to recognize signs & symptoms of depression, Instruct patient to recog and Other additional plan/intervention 30-day Reassessments: 30 day Reassessments:: Progressing Reassessment Notes & Comments:: Pt is on Zoloft and Lorazepam. Pt denies need for counseling. Pt has attended stress management class. Psychosocial - Final Assessmen Referral to Behavioral Health PS - Interventions: Yes: Attend Stress Management Classes Nutrition - 90-Day Assessment Program Goals Nutrition Program Goals Patient has diagnosis of Hyperlipidemia (ICD E78)?: Yes Visit Date of Eval: 06/15/25 Session #:: 34 (Nutrition survey score of 3.) Cholesterol/Lipids (Other Core Measures) Determine presence & major risk factors that modify LDL goal: Cigarette smoking, Hypertension or hypertensive medication, Low HDL cholesterol <40 mg/dL*, Family history of premature CHD in Male < 55 years: female <65 yearsFa and Age men > 45 years; women >/= 55 years Outcomes/Goals: Pt IDs own risk factors & lifestyle modifications by Session 10, Verbalizes symptoms of angina & response by session 3., Pt independently manages and Other Additional Outcomes/Goals: Intervention/Plan: Advocate for lipid panel cholesterol medication if applicable, Instruct on personal lipid levels & lipid goals/NCEP guidelines, Instruct on cholesterol and Other additional plan/int Diabetes (Other Core Measures) Diabetes Type: Not Applicable Weight Mgt (Other Care) Height: 5 ft 10 in Weight:: 179 lb 8 oz BMI: 25.7 Diagnosis Overweight/Obesity BMI> 30% ICD-10 E66: No Diagnosis High BMI/Morbid Obesity BMI> 35% ICD-10 Z68: No Outcomes/Goals: Pt sets, maintains & shows weight loss goal & trend during rehab and Other additional outcomes/goals Intervention/Plan: Instruct on ideal BMI & set weight loss goal w/patient, Assist pt to ID & incorporate diet changes for weight loss by S9, Refer to Structured Weight Loss program as appropriate, Encourage goal of using 250- 300dcal per session for weight loss and Other additional plan/interventions Healthy Eating Habits Will attend diet classes:: Yes Outcomes/Goals:: Consume diet rich in vegs,fruits,whole grain/high fiber,fish,lean meat, Limit sat/trans fats,cholesterol & added salts & sugars and Other additional outcome/goals: Intervention/Plan:: Assess current eating habits and Other Additional plan/int erventions 30-day Reassessments:: Met Reassessment Notes & Comments:: Pt has attended nutrition class. Pt understands the benefits of a hearth healthy low sodium diet. Pt encouraged to keep a food diary for our review. Pt is at a healthy weight. Education Gave educational materials for:: Signs & symptoms of hypoglycemia, Signs & symptoms of hyperglycemia, Relate diabetes to coronary artery disease and Healthy eating Nutrition - Final Assessment Weight Mgt (Other Care) Height: 5 ft 10 in Weight:: 179 lb 8 oz BMI: 25.7
[2025-06-15 09:42] VITALS: BP 98/48; BMI 25.7
== END 2025-07-02 23:59 ==
LOC: CR 11:15
PROVIDERS: Referring Provider Thoracic Surgery (Cardiothoracic Vascular Surgery); Visit Provider Thoracic Surgery (Cardiothoracic Vascular Surgery)
DX: Z95.1 Presence of aortocoronary bypass graft (principal)
CPT/HCPCS: 93798